=== PATIENT | female | born 1930 | race Caucasian/White ===

== ENCOUNTER 2019-03-09 01:51 | Inpatient (IN) | payer OTHER, MEDICAID ==
[~2019-03-09] VITALS: Ht 154.9 cm; Wt 72.1 kg
[~2019-03-09 01:51] MED LIST: ALLO-57; ASPI-859; COR25; FERR325T30; FURO-150; GLIP5TAB13; HUM10VIA3; LOSA100T23; SIMV10TA6 PO; VIT1TABL67
[2019-03-09 02:00] VITALS: BP_SYST 148
[2019-03-09] MEDS ORDERED: ACETAMINOPHEN 500 MG TABLET PO ONE (03:00)
[2019-03-09 03:18] LABS: BASOPHILS # (AUTO) 0.1 K/uL (0.0-0.2); BASOPHILS % (AUTO) 0.8 % (0.0-2.0); EOSINOPHILS # (AUTO) 0.1 K/uL (0.0-0.4); HEMATOCRIT 35.9 % (36-48); HEMOGLOBIN 11.7 g/dL (12.0-16.0); LYMPHOCYTES # (AUTO) 0.6 K/uL (1.0-5.5); MEAN CORPUSCULAR HEMOGLOBIN 30 pg (27-31); MEAN CORPUSCULAR HGB CONC 33 % (32-36); MEAN CORPUSCULAR VOLUME 91 fL (79.0-98.0); MONOCYTES # (AUTO) 0.8 K/uL (0.0-1.0); MONOCYTES % (AUTO) 8.6 % (1.7-9.3); NEUTROPHILS # (AUTO) 8.2 K/uL (1.8-7.7); NEUTROPHILS % (AUTO) 83.6 % (40.0-70.0); PLATELET COUNT (AUTO) 245 K/uL (130-430); RED BLOOD CELL COUNT(AUTO) 3.97 MIL/uL (4.2-6.2); RED CELL DISTRIBUTION WIDTH 15.8 % (9.0-15.0); WHITE BLOOD COUNT (AUTO) 9.8 K/uL (4.8-10.8)
[2019-03-09 03:33] LABS: ANION GAP 7 (5-15); CALCIUM 9.1 mg/dL (8.4-11.0); CHLORIDE 102 mmol/L (98-107); CREATININE 1.33 mg/dL (0.55-1.30); GLUCOSE 335 mg/dL (70-99); POTASSIUM 4.5 mmol/L (3.5-5.1); SODIUM SERUM 134 mmol/L (136-145); UREA NITROGEN, BLOOD 22 mg/dL (8-21)
[2019-03-09 03:36] LABS: INR 2.1 (0.8-1.2); PROTHROMBIN TIME 20.5 SECS (9.5-12.5)
[2019-03-09 03:38] LABS: ALANINE AMINOTRANSFERASE 6 U/L (12-78); ALBUMIN 2.8 g/dL (3.4-4.8); ASPARTATE AMINOTRANSFERASE 11 U/L (10-37); TOTAL BILIRUBIN 0.7 mg/dL (0.0-1.0)
[2019-03-09] MEDS ORDERED: DILTIAZEM HCL 25 MG/5 ML VIAL IVP ONE (04:00)
[2019-03-09] MEDS ORDERED: ALLO100T PO (04:43)
[2019-03-09] MEDS ORDERED: IRON1CAP17 PO (04:43)
[2019-03-09] MEDS ORDERED: WARF2TAB2 PO (04:43)
[2019-03-09] MEDS ORDERED: INSU100I12 SQ (04:43)
[2019-03-09] MEDS ORDERED: FURO-149 PO (04:43)
[2019-03-09] MEDS ORDERED: FAMO40TA7 PO (04:43)
[2019-03-09] MEDS ORDERED: LOSA25TA3 PO (04:43)
[2019-03-09] MEDS ORDERED: FLUT100D INH (04:43)
[2019-03-09] MEDS ORDERED: DILT120C89 PO (04:43)
[2019-03-09] MEDS ORDERED: GABA-531 PO (04:43)
[2019-03-09] MEDS ORDERED: DOCU250C14 PO (04:43)
[2019-03-09] MEDS ORDERED: TRAZ-218 PO (04:43)
[2019-03-09] MEDS ORDERED: LIP20 PO (04:43)
[2019-03-09] MEDS ORDERED: TOPXL100 PO (04:43)
[2019-03-09] MEDS ORDERED: ACET-2165 PO (04:43)
[2019-03-09] MEDS ORDERED: NPH,100I SQ ×2 (04:43)
[2019-03-09] MEDS ORDERED: cefTRIAXone 1 GM IVPB PREMIX 50 ML IV ONE (05:15)
[2019-03-09] MEDS ORDERED: AZITHROMYCIN 250 MG TABLET PO ONE (05:15)
[2019-03-09] MEDS ORDERED: DILTIAZEM HCL 60 MG TABLET ONE (06:50)
[2019-03-09 07:32] VITALS: BP_SYST 142
[2019-03-09 08:00] VITALS: BP_SYST 144
[2019-03-09 08:32] LABS: INR 2.1 (0.8-1.2); PROTHROMBIN TIME 20.7 SECS (9.5-12.5)
[2019-03-09] MEDS: DILTIAZEM HCL 60 MG TABLET PO SCH ×3 (12:00→18:00)
[2019-03-09] MEDS ORDERED: METOPROLOL TARTRATE 50 MG TABLET PO ONE (12:00)
[2019-03-09 12:49] VITALS: BP_SYST 146
[2019-03-09 16:48] VITALS: BP_SYST 141
[2019-03-09 20:00] VITALS: BP_SYST 93
[2019-03-09] MEDS: METOPROLOL TARTRATE 50 MG TABLET PO SCH (21:00)
[2019-03-09] MEDS ORDERED: DEXTROSE 50%-WATER 50 ML DISP.SYRIN IVP PRN (21:15)
[2019-03-09] MEDS ORDERED: D5W 1,000 ML IV PRN (21:15)
[2019-03-09] MEDS ORDERED: GLUCOSE 15 GM GEL (in 37.5 GM TUBE) PO PRN (21:15)
[2019-03-09] MEDS ORDERED: COMMUNICATION ORDER XX ONE (21:30)
[2019-03-09] MEDS: INSULIN LISPRO SLIDING SCALE 100 UNITS/ML VIAL (humaLOG) SUBCUT PRN (22:25)
[2019-03-10 00:04] VITALS: BP_SYST 135
[2019-03-10] MEDS: DILTIAZEM HCL 60 MG TABLET PO SCH ×4 (06:00→18:00)
[2019-03-10 06:45] LABS: BASOPHILS # (AUTO) 0.1 K/uL (0.0-0.2); EOSINOPHILS # (AUTO) 0.2 K/uL (0.0-0.4); EOSINOPHILS % (AUTO) 2.9 % (0.0-4.0); HEMATOCRIT 33.3 % (36-48); HEMOGLOBIN 11.1 g/dL (12.0-16.0); LYMPHOCYTES % (AUTO) 13.1 % (20.5-51.5); MEAN CORPUSCULAR HEMOGLOBIN 30 pg (27-31); MEAN CORPUSCULAR HGB CONC 33 % (32-36); MEAN CORPUSCULAR VOLUME 90 fL (79.0-98.0); MONOCYTES # (AUTO) 0.7 K/uL (0.0-1.0); MONOCYTES % (AUTO) 8.5 % (1.7-9.3); NEUTROPHILS # (AUTO) 5.9 K/uL (1.8-7.7); NEUTROPHILS % (AUTO) 74.5 % (40.0-70.0); PLATELET COUNT (AUTO) 249 K/uL (130-430); RED CELL DISTRIBUTION WIDTH 16.3 % (9.0-15.0); WHITE BLOOD COUNT (AUTO) 7.9 K/uL (4.8-10.8)
[2019-03-10 06:52] LABS: INR 2.7 (0.8-1.2); PROTHROMBIN TIME 26.7 SECS (9.5-12.5)
[2019-03-10 07:12] LABS: ALANINE AMINOTRANSFERASE 14 U/L (12-78); ALBUMIN 2.7 g/dL (3.4-4.8); ANION GAP 6 (5-15); ASPARTATE AMINOTRANSFERASE 19 U/L (10-37); CHLORIDE 107 mmol/L (98-107); CREATININE 1.27 mg/dL (0.55-1.30); GLUCOSE 123 mg/dL (70-99); POTASSIUM 5.1 mmol/L (3.5-5.1); SODIUM SERUM 140 mmol/L (136-145); THYROID STIMULATING HORMONE 2.43 uIu/mL (0.36-3.74); TOTAL BILIRUBIN 0.4 mg/dL (0.0-1.0); UREA NITROGEN, BLOOD 23 mg/dL (8-21)
[2019-03-10 08:15] VITALS: BP_SYST 147
[2019-03-10] MEDS: FUROSEMIDE 40 MG TABLET PO SCH (09:25)
[2019-03-10] MEDS: ALLOPURINOL 100 MG TABLET (ZYLOPRIM) PO SCH (09:26)
[2019-03-10] MEDS: ATORVASTATIN 20 MG TABLET PO SCH (09:26)
[2019-03-10] MEDS: METOPROLOL TARTRATE 50 MG TABLET PO SCH ×2 (09:27→20:30)
[2019-03-10 11:26] VITALS: BP_SYST 116
[2019-03-10] MEDS: INSULIN LISPRO SLIDING SCALE 100 UNITS/ML VIAL (humaLOG) SUBCUT PRN ×3 (12:19→20:36)
[2019-03-10 15:43] VITALS: BP_SYST 122
[2019-03-10 20:00] VITALS: BP_SYST 157
[2019-03-11] VITALS: BP_SYST 123
[2019-03-11] MEDS: DILTIAZEM HCL 60 MG TABLET PO SCH ×4 (06:00→17:10)
[2019-03-11] MEDS: INSULIN LISPRO SLIDING SCALE 100 UNITS/ML VIAL (humaLOG) SUBCUT PRN ×4 (06:04→21:01)
[2019-03-11 06:46] LABS: BASOPHILS # (AUTO) 0.1 K/uL (0.0-0.2); BASOPHILS % (AUTO) 0.8 % (0.0-2.0); EOSINOPHILS # (AUTO) 0.2 K/uL (0.0-0.4); EOSINOPHILS % (AUTO) 3.3 % (0.0-4.0); HEMATOCRIT 34.7 % (36-48); HEMOGLOBIN 11.5 g/dL (12.0-16.0); LYMPHOCYTES # (AUTO) 1.1 K/uL (1.0-5.5); LYMPHOCYTES % (AUTO) 16.3 % (20.5-51.5); MEAN CORPUSCULAR HEMOGLOBIN 30 pg (27-31); MEAN CORPUSCULAR HGB CONC 33 % (32-36); MEAN CORPUSCULAR VOLUME 90 fL (79.0-98.0); MONOCYTES # (AUTO) 0.6 K/uL (0.0-1.0); MONOCYTES % (AUTO) 9.5 % (1.7-9.3); NEUTROPHILS # (AUTO) 4.7 K/uL (1.8-7.7); NEUTROPHILS % (AUTO) 70.1 % (40.0-70.0); PLATELET COUNT (AUTO) 242 K/uL (130-430); RED BLOOD CELL COUNT(AUTO) 3.88 MIL/uL (4.2-6.2); RED CELL DISTRIBUTION WIDTH 15.9 % (9.0-15.0); WHITE BLOOD COUNT (AUTO) 6.7 K/uL (4.8-10.8)
[2019-03-11 06:55] LABS: PROTHROMBIN TIME 19.9 SECS (9.5-12.5)
[2019-03-11 07:02] LABS: ANION GAP 8 (5-15); CALCIUM 8.9 mg/dL (8.4-11.0); CHLORIDE 106 mmol/L (98-107); CREATININE 1.34 mg/dL (0.55-1.30); GLUCOSE 169 mg/dL (70-99); POTASSIUM 4.5 mmol/L (3.5-5.1); SODIUM SERUM 141 mmol/L (136-145); UREA NITROGEN, BLOOD 26 mg/dL (8-21)
[2019-03-11] MEDS: ATORVASTATIN 20 MG TABLET PO SCH (08:38)
[2019-03-11] MEDS: FUROSEMIDE 40 MG TABLET PO SCH (08:38)
[2019-03-11] MEDS: ALLOPURINOL 100 MG TABLET (ZYLOPRIM) PO SCH (08:38)
[2019-03-11] MEDS: METOPROLOL TARTRATE 50 MG TABLET PO SCH ×2 (08:39→20:59)
[2019-03-11 09:12] VITALS: BP_SYST 130
[2019-03-11 09:36] LABS: INR 1.9 (0.8-1.2); PROTHROMBIN TIME 18.9 SECS (9.5-12.5)
[2019-03-11 12:00] VITALS: BP_SYST 140
[2019-03-11 17:48] VITALS: BP_SYST 136
[2019-03-11 20:00] VITALS: BP_SYST 143
[2019-03-12] VITALS: BP_SYST 146
[2019-03-12] MEDS: DILTIAZEM HCL 60 MG TABLET PO SCH ×4 (06:16→17:16)
[2019-03-12] MEDS: INSULIN LISPRO SLIDING SCALE 100 UNITS/ML VIAL (humaLOG) SUBCUT PRN ×3 (06:18→17:20)
[2019-03-12 07:37] LABS: BASOPHILS # (AUTO) 0.1 K/uL (0.0-0.2); BASOPHILS % (AUTO) 0.9 % (0.0-2.0); EOSINOPHILS # (AUTO) 0.2 K/uL (0.0-0.4); EOSINOPHILS % (AUTO) 2.2 % (0.0-4.0); HEMATOCRIT 36.7 % (36-48); LYMPHOCYTES # (AUTO) 1.2 K/uL (1.0-5.5); LYMPHOCYTES % (AUTO) 16.4 % (20.5-51.5); MEAN CORPUSCULAR HEMOGLOBIN 30 pg (27-31); MEAN CORPUSCULAR HGB CONC 33 % (32-36); MEAN CORPUSCULAR VOLUME 91 fL (79.0-98.0); MONOCYTES # (AUTO) 0.8 K/uL (0.0-1.0); MONOCYTES % (AUTO) 10.5 % (1.7-9.3); NEUTROPHILS # (AUTO) 5.3 K/uL (1.8-7.7); PLATELET COUNT (AUTO) 246 K/uL (130-430); RED BLOOD CELL COUNT(AUTO) 4.05 MIL/uL (4.2-6.2); RED CELL DISTRIBUTION WIDTH 15.4 % (9.0-15.0); WHITE BLOOD COUNT (AUTO) 7.6 K/uL (4.8-10.8)
[2019-03-12 07:56] LABS: ANION GAP 11 (5-15); CALCIUM 8.9 mg/dL (8.4-11.0); CHLORIDE 105 mmol/L (98-107); GLUCOSE 191 mg/dL (70-99); POTASSIUM 4.6 mmol/L (3.5-5.1); SODIUM SERUM 143 mmol/L (136-145); UREA NITROGEN, BLOOD 30 mg/dL (8-21)
[2019-03-12 08:00] VITALS: BP_SYST 141
[2019-03-12 08:00] LABS: INR 1.4 (0.8-1.2); PROTHROMBIN TIME 14.3 SECS (9.5-12.5)
[2019-03-12] MEDS: FUROSEMIDE 40 MG TABLET PO SCH (09:28)
[2019-03-12] MEDS: ATORVASTATIN 20 MG TABLET PO SCH (09:28)
[2019-03-12] MEDS: ALLOPURINOL 100 MG TABLET (ZYLOPRIM) PO SCH (09:29)
[2019-03-12] MEDS: METOPROLOL TARTRATE 50 MG TABLET PO SCH (09:29)
[2019-03-12 12:19] VITALS: BP_SYST 135
[2019-03-12 15:54] VITALS: BP_SYST 121
[2019-03-12 16:19] VITALS: BP_SYST 135
[2019-03-12] MEDS ORDERED: WARF2TAB2 PO (16:33)
[2019-03-12] MEDS ORDERED: WARF1TAB2 PO (16:34)
[2019-03-12] MEDS ORDERED: METO-442 PO (16:48)
[2019-03-12] MEDS ORDERED: DILT60TA3 PO (16:49)
[2019-03-12] MEDS ORDERED: SSNOVOLOG SUBCUT (16:50)
[2019-03-12] MEDS ORDERED: INSU100V SQ (16:54)
[2019-03-12 19:34] LABS: SOURCE/TYPE ,BODY FLUID THORACENTESIS
[2019-03-12 19:35] LABS: BF APPEARANCE UNSPUN CLOUDY (CLEAR); BODY FLUID COLOR YELLOW (LT YELLOW); BODY FLUID SOURCE/ TYPE PLEURAL; BODY FLUID TOTAL VOLUME 300 mL; EOSINOPHIL, BODY FLUID 0 %; LYMPHOCYTES, BODY FLUID 92 %; MONOCYTES,BODY FLUID 2 %; NEUTROPHIL, BODY FLUID 6 %; RBC, BODY FLUID 8256 /uL; WBC, BODY FLUID 102 /uL
[2019-03-12 20:35] LABS: BODY FLUID GLUCOSE 164 mg/dL
== END 2019-03-12 19:10 | DRG 308 ==
LOC: SED 01:51 → STU 05:57
PROVIDERS: ADMIT Internal Medicine; ATTEND Internal Medicine
PROC: 0W993ZZ Drainage of Right Pleural Cavity, Percutaneous Approach (ICD-10-PCS; principal; 2019-03-12)
DX: I48.2 Chronic atrial fibrillation (principal); I50.41 Acute combined systolic (congestive) and diastolic (congestive) heart failure; D68.59 Other primary thrombophilia; J91.8 Pleural effusion in other conditions classified elsewhere; E44.0 Moderate protein-calorie malnutrition; I11.0 Hypertensive heart disease with heart failure; E78.5 Hyperlipidemia, unspecified; F32.9 Major depressive disorder, single episode, unspecified; G31.84 Mild cognitive impairment of uncertain or unknown etiology; E11.42 Type 2 diabetes mellitus with diabetic polyneuropathy; Z60.2 Problems related to living alone; I25.10 Atherosclerotic heart disease of native coronary artery without angina pectoris; E66.9 Obesity, unspecified; S43.401A Unspecified sprain of right shoulder joint, initial encounter; W01.0XXA Fall on same level from slipping, tripping and stumbling without subsequent striking against object, initial encounter; Y93.89 Activity, other specified; Z79.01 Long term (current) use of anticoagulants; Y99.8 Other external cause status; Z90.49 Acquired absence of other specified parts of digestive tract; Z85.038 Personal history of other malignant neoplasm of large intestine; Z74.01 Bed confinement status; Z79.4 Long term (current) use of insulin; Z87.891 Personal history of nicotine dependence; Z88.0 Allergy status to penicillin; Z88.8 Allergy status to other drugs, medicaments and biological substances; Y92.098 Other place in other non-institutional residence as the place of occurrence of the external cause; Z79.899 Other long term (current) drug therapy; Z68.30 Body mass index [BMI] 30.0-30.9, adult
CPT/HCPCS: 32555; 36415; 70450-TC; 71045; 71250-TC; 73030; 73060-TC; 80048; 80053; 82947-TC; 82962; 83036; 83605; 83735-TC; 83880; 84157-TC; 84443-TC; 84484; 85025; 85610-TC; 85730-TC; 87040-TC; 87070-TC; 87081; 88108; 88305; 89051-TC; 89060-TC; 93005; 93306; 97110-GP; 97116-GP; 97530-GP; C1729; G0378; J0696; Q0144

== ENCOUNTER 2019-03-15 22:01 | Inpatient (IN) | payer OTHER, MEDICAID ==
[~2019-03-15] VITALS: Ht 154.9 cm; Wt 73.2 kg
[~2019-03-15 22:01] MED LIST changes: +ACET-2165 PO; -ALLO-57; +ALLO100T PO; -ASPI-859; -COR25; +DILT60TA3 PO; -FERR325T30; +FURO-149 PO; -FURO-150; -GLIP5TAB13; -HUM10VIA3; +LIP20 PO; -LOSA100T23; +METO-442 PO; -SIMV10TA6 PO; +SSNOVOLOG SUBCUT; -VIT1TABL67; +WARF1TAB2 PO
[2019-03-15 22:05] VITALS: BP_SYST 129
[2019-03-15 22:35] LABS: BASOPHILS # (AUTO) 0.1 K/uL (0.0-0.2); BASOPHILS % (AUTO) 0.8 % (0.0-2.0); EOSINOPHILS # (AUTO) 0.3 K/uL (0.0-0.4); EOSINOPHILS % (AUTO) 3.1 % (0.0-4.0); HEMOGLOBIN 11.6 g/dL (12.0-16.0); LYMPHOCYTES # (AUTO) 1.2 K/uL (1.0-5.5); LYMPHOCYTES % (AUTO) 12.8 % (20.5-51.5); MEAN CORPUSCULAR HEMOGLOBIN 30 pg (27-31); MEAN CORPUSCULAR HGB CONC 33 % (32-36); MEAN CORPUSCULAR VOLUME 89 fL (79.0-98.0); MONOCYTES # (AUTO) 0.8 K/uL (0.0-1.0); MONOCYTES % (AUTO) 8.6 % (1.7-9.3); NEUTROPHILS # (AUTO) 7.2 K/uL (1.8-7.7); NEUTROPHILS % (AUTO) 74.7 % (40.0-70.0); PLATELET COUNT (AUTO) 303 K/uL (130-430); RED BLOOD CELL COUNT(AUTO) 3.92 MIL/uL (4.2-6.2); RED CELL DISTRIBUTION WIDTH 15.7 % (9.0-15.0); WHITE BLOOD COUNT (AUTO) 9.6 K/uL (4.8-10.8)
[2019-03-15 22:48] LABS: ANION GAP 11 (5-15); CALCIUM 8.8 mg/dL (8.4-11.0); CHLORIDE 101 mmol/L (98-107); CREATININE 1.72 mg/dL (0.55-1.30); GLUCOSE 182 mg/dL (70-99); POTASSIUM 4.6 mmol/L (3.5-5.1); SODIUM SERUM 139 mmol/L (136-145); UREA NITROGEN, BLOOD 50 mg/dL (8-21)
[2019-03-15 22:52] LABS: INR 1.1 (0.8-1.2); PROTHROMBIN TIME 11.6 SECS (9.5-12.5)
[2019-03-15 22:54] LABS: ALANINE AMINOTRANSFERASE 15 U/L (12-78); ALBUMIN 2.7 g/dL (3.4-4.8); ASPARTATE AMINOTRANSFERASE 16 U/L (10-37); TOTAL BILIRUBIN 0.4 mg/dL (0.0-1.0)
[2019-03-15] MEDS ORDERED: MULT-1117 PO (23:03)
[2019-03-15] MEDS ORDERED: NYSTATIN POWDER TP (23:03)
[2019-03-15] MEDS ORDERED: MOM PO (23:03)
[2019-03-15] MEDS ORDERED: INSULIN LISPRO SQ (23:03)
[2019-03-15] MEDS ORDERED: ZINC50TA69 PO (23:03)
[2019-03-15] MEDS ORDERED: ASCO500T20 PO (23:03)
[2019-03-15] MEDS ORDERED: ASCO500C18 PO (23:03)
[2019-03-15] MEDS ORDERED: NACL 0.9% 500 ML IV ONE (23:30)
[2019-03-15] MEDS ORDERED: LEVOFLOXACIN 500 MG/D5W 100 ML IV ONE (23:45)
[2019-03-15] MEDS ORDERED: CLINDAMYCIN 900 mg/50mL D5W 50 ML IV ONE (23:45)
[2019-03-16 02:26] VITALS: BP_SYST 137
[2019-03-16] MEDS: INSULIN REGULAR, HUMAN 100 UNITS/ML, 10 ML VIAL (humuLIN R) SUBCUT PRN ×4 (05:56→21:05)
[2019-03-16 08:06] VITALS: BP_SYST 138
[2019-03-16] MEDS ORDERED: ACETAMINOPHEN 325 MG TABLET PO PRN (11:15)
[2019-03-16] MEDS: NACL 0.9% 1,000 ML IV SCH (11:59)
[2019-03-16 12:30] VITALS: BP_SYST 130
[2019-03-16] MEDS ORDERED: MILK OF MAGNESIA 30 ML UDC PO PRN (13:45)
[2019-03-16 14:42] LABS: INR 1.3 (0.8-1.2); PROTHROMBIN TIME 12.9 SECS (9.5-12.5)
[2019-03-16 16:15] VITALS: BP_SYST 129
[2019-03-16] MEDS: DILTIAZEM HCL 60 MG TABLET PO SCH ×2 (17:22→23:17)
[2019-03-16] MEDS ORDERED: WARFARIN SODIUM 1 MG TABLET PO SCH (18:00)
[2019-03-16] MEDS ORDERED: WARFARIN SODIUM 5 MG TABLET PO ONE (18:00)
[2019-03-16] MEDS: ATORVASTATIN 20 MG TABLET PO SCH (21:03)
[2019-03-16] MEDS: METOPROLOL TARTRATE 50 MG TABLET PO SCH (21:04)
[2019-03-17 00:47] VITALS: BP_SYST 141
[2019-03-17] MEDS: NACL 0.9% 1,000 ML IV SCH (02:33)
[2019-03-17] MEDS: DILTIAZEM HCL 60 MG TABLET PO SCH ×3 (05:34→18:00)
[2019-03-17 06:35] LABS: INR 1.4 (0.8-1.2); PROTHROMBIN TIME 14.5 SECS (9.5-12.5)
[2019-03-17 06:40] LABS: BASOPHILS # (AUTO) 0.1 K/uL (0.0-0.2); BASOPHILS % (AUTO) 0.9 % (0.0-2.0); EOSINOPHILS # (AUTO) 0.2 K/uL (0.0-0.4); EOSINOPHILS % (AUTO) 3.1 % (0.0-4.0); HEMATOCRIT 30.7 % (36-48); HEMOGLOBIN 10.4 g/dL (12.0-16.0); LYMPHOCYTES % (AUTO) 15.2 % (20.5-51.5); MEAN CORPUSCULAR HEMOGLOBIN 30 pg (27-31); MEAN CORPUSCULAR HGB CONC 34 % (32-36); MEAN CORPUSCULAR VOLUME 89 fL (79.0-98.0); MONOCYTES # (AUTO) 0.6 K/uL (0.0-1.0); MONOCYTES % (AUTO) 8.9 % (1.7-9.3); NEUTROPHILS # (AUTO) 4.9 K/uL (1.8-7.7); NEUTROPHILS % (AUTO) 71.9 % (40.0-70.0); PLATELET COUNT (AUTO) 258 K/uL (130-430); RED BLOOD CELL COUNT(AUTO) 3.45 MIL/uL (4.2-6.2); RED CELL DISTRIBUTION WIDTH 15.8 % (9.0-15.0)
[2019-03-17 06:53] LABS: ALANINE AMINOTRANSFERASE 14 U/L (12-78); ALBUMIN 2.3 g/dL (3.4-4.8); ANION GAP 9 (5-15); ASPARTATE AMINOTRANSFERASE 14 U/L (10-37); CALCIUM 8.1 mg/dL (8.4-11.0); CHLORIDE 109 mmol/L (98-107); CREATININE 1.47 mg/dL (0.55-1.30); GLUCOSE 140 mg/dL (70-99); POTASSIUM 4.1 mmol/L (3.5-5.1); SODIUM SERUM 143 mmol/L (136-145); TOTAL BILIRUBIN 0.3 mg/dL (0.0-1.0); UREA NITROGEN, BLOOD 38 mg/dL (8-21)
[2019-03-17 07:58] LABS: WHITE BLOOD COUNT (AUTO) 6.8 K/uL (4.8-10.8)
[2019-03-17 08:00] VITALS: BP_SYST 156
[2019-03-17] MEDS: ALLOPURINOL 100 MG TABLET (ZYLOPRIM) PO SCH (08:20)
[2019-03-17] MEDS: MULTIVITAMINS TAB 1 TABLET PO SCH (08:20)
[2019-03-17] MEDS: ASCORBIC ACID 500 MG TABLET PO SCH (08:20)
[2019-03-17] MEDS: METOPROLOL TARTRATE 50 MG TABLET PO SCH ×2 (08:20→21:57)
[2019-03-17] MEDS: FUROSEMIDE 40 MG TABLET PO SCH (08:20)
[2019-03-17] MEDS ORDERED: NYSTATIN 15 GM TOPICAL POWDER TP SCH (09:00)
[2019-03-17] MEDS: INSULIN REGULAR, HUMAN 100 UNITS/ML, 10 ML VIAL (humuLIN R) SUBCUT PRN ×2 (11:58→21:59)
[2019-03-17 12:40] VITALS: BP_SYST 133
[2019-03-17] MEDS ORDERED: VANCOMYCIN HCL 1,500 MG in NS 250 ML IV ONE (14:00)
[2019-03-17 16:35] VITALS: BP_SYST 137
[2019-03-17] MEDS ORDERED: WARFARIN SODIUM 5 MG TABLET PO ONE (18:00)
[2019-03-17 20:00] VITALS: BP_SYST 164
[2019-03-17] MEDS: ATORVASTATIN 20 MG TABLET PO SCH (21:57)
[2019-03-18] VITALS: BP_SYST 134
[2019-03-18] MEDS: DILTIAZEM HCL 60 MG TABLET PO SCH ×4 (06:00→17:00)
[2019-03-18 07:00] LABS: ANION GAP 6 (5-15); CALCIUM 8.8 mg/dL (8.4-11.0); CHLORIDE 109 mmol/L (98-107); CREATININE 1.35 mg/dL (0.55-1.30); GLUCOSE 142 mg/dL (70-99); POTASSIUM 3.9 mmol/L (3.5-5.1); SODIUM SERUM 144 mmol/L (136-145); UREA NITROGEN, BLOOD 32 mg/dL (8-21)
[2019-03-18] MEDS: MULTIVITAMINS TAB 1 TABLET PO SCH (07:51)
[2019-03-18] MEDS: ALLOPURINOL 100 MG TABLET (ZYLOPRIM) PO SCH (07:51)
[2019-03-18] MEDS: METOPROLOL TARTRATE 50 MG TABLET PO SCH ×2 (07:51→21:00)
[2019-03-18] MEDS: ASCORBIC ACID 500 MG TABLET PO SCH (07:51)
[2019-03-18] MEDS: FUROSEMIDE 40 MG TABLET PO SCH (07:52)
[2019-03-18] MEDS: NYSTATIN 15 GM TOPICAL POWDER TP SCH (07:53)
[2019-03-18 08:00] VITALS: BP_SYST 153
[2019-03-18 09:52] LABS: INR 1.8 (0.8-1.2); PROTHROMBIN TIME 18.3 SECS (9.5-12.5)
[2019-03-18] MEDS: INSULIN REGULAR, HUMAN 100 UNITS/ML, 10 ML VIAL (humuLIN R) SUBCUT PRN ×3 (11:53→21:58)
[2019-03-18 12:47] VITALS: BP_SYST 134
[2019-03-18] MEDS: VANCOMYCIN HCL 750 MG/NS 250 ML IV SCH (14:58)
[2019-03-18 16:15] VITALS: BP_SYST 133
[2019-03-18] MEDS ORDERED: WARFARIN SODIUM 4 MG TABLET PO ONE (18:00)
[2019-03-18 20:00] VITALS: BP_SYST 138
[2019-03-18] MEDS: ATORVASTATIN 20 MG TABLET PO SCH (21:54)
[2019-03-19] VITALS: BP_SYST 139
[2019-03-19] MEDS: DILTIAZEM HCL 60 MG TABLET PO SCH ×4 (06:31→17:45)
[2019-03-19 08:00] VITALS: BP_SYST 159
[2019-03-19] MEDS: ALLOPURINOL 100 MG TABLET (ZYLOPRIM) PO SCH (09:23)
[2019-03-19] MEDS: ASCORBIC ACID 500 MG TABLET PO SCH (09:23)
[2019-03-19] MEDS: FUROSEMIDE 40 MG TABLET PO SCH (09:23)
[2019-03-19] MEDS: MULTIVITAMINS TAB 1 TABLET PO SCH (09:23)
[2019-03-19] MEDS: METOPROLOL TARTRATE 50 MG TABLET PO SCH ×2 (09:24→21:00)
[2019-03-19] MEDS: NYSTATIN 15 GM TOPICAL POWDER TP SCH (09:40)
[2019-03-19 10:32] LABS: INR 2.3 (0.8-1.2)
[2019-03-19 12:00] VITALS: BP_SYST 158
[2019-03-19] MEDS: INSULIN REGULAR, HUMAN 100 UNITS/ML, 10 ML VIAL (humuLIN R) SUBCUT PRN ×3 (12:03→21:58)
[2019-03-19] MEDS: VANCOMYCIN HCL 750 MG/NS 250 ML IV SCH (13:41)
[2019-03-19 17:04] VITALS: BP_SYST 129
[2019-03-19] MEDS ORDERED: WARFARIN SODIUM 3 MG TABLET PO SCH (18:00)
[2019-03-19 20:00] VITALS: BP_SYST 138
[2019-03-19] MEDS: ATORVASTATIN 20 MG TABLET PO SCH (21:56)
[2019-03-20 02:09] VITALS: BP_SYST 133
[2019-03-20] MEDS: DILTIAZEM HCL 60 MG TABLET PO SCH ×3 (06:29→11:44)
[2019-03-20 08:08] LABS: BASOPHILS # (AUTO) 0.1 K/uL (0.0-0.2); BASOPHILS % (AUTO) 0.7 % (0.0-2.0); EOSINOPHILS # (AUTO) 0.2 K/uL (0.0-0.4); EOSINOPHILS % (AUTO) 2.8 % (0.0-4.0); HEMATOCRIT 33.1 % (36-48); HEMOGLOBIN 11.1 g/dL (12.0-16.0); LYMPHOCYTES % (AUTO) 12.9 % (20.5-51.5); MEAN CORPUSCULAR HEMOGLOBIN 30 pg (27-31); MEAN CORPUSCULAR HGB CONC 34 % (32-36); MEAN CORPUSCULAR VOLUME 90 fL (79.0-98.0); MONOCYTES # (AUTO) 0.6 K/uL (0.0-1.0); NEUTROPHILS # (AUTO) 5.8 K/uL (1.8-7.7); NEUTROPHILS % (AUTO) 75.6 % (40.0-70.0); PLATELET COUNT (AUTO) 240 K/uL (130-430); RED BLOOD CELL COUNT(AUTO) 3.69 MIL/uL (4.2-6.2); RED CELL DISTRIBUTION WIDTH 15.6 % (9.0-15.0); WHITE BLOOD COUNT (AUTO) 7.7 K/uL (4.8-10.8)
[2019-03-20 08:10] VITALS: BP_SYST 136
[2019-03-20 08:26] LABS: INR 2.6 (0.8-1.2); PROTHROMBIN TIME 25.8 SECS (9.5-12.5)
[2019-03-20 08:28] LABS: ALANINE AMINOTRANSFERASE 15 U/L (12-78); ALBUMIN 2.5 g/dL (3.4-4.8); ANION GAP 3 (5-15); ASPARTATE AMINOTRANSFERASE 18 U/L (10-37); CALCIUM 9.3 mg/dL (8.4-11.0); CHLORIDE 106 mmol/L (98-107); CREATININE 1.36 mg/dL (0.55-1.30); GLUCOSE 124 mg/dL (70-99); POTASSIUM 3.8 mmol/L (3.5-5.1); SODIUM SERUM 140 mmol/L (136-145); TOTAL BILIRUBIN 0.5 mg/dL (0.0-1.0); UREA NITROGEN, BLOOD 30 mg/dL (8-21)
[2019-03-20] MEDS: ASCORBIC ACID 500 MG TABLET PO SCH (09:01)
[2019-03-20] MEDS: MULTIVITAMINS TAB 1 TABLET PO SCH (09:01)
[2019-03-20] MEDS: ALLOPURINOL 100 MG TABLET (ZYLOPRIM) PO SCH (09:02)
[2019-03-20] MEDS: FUROSEMIDE 40 MG TABLET PO SCH (09:02)
[2019-03-20] MEDS: METOPROLOL TARTRATE 50 MG TABLET PO SCH (09:02)
[2019-03-20] MEDS: NYSTATIN 15 GM TOPICAL POWDER TP SCH (09:05)
[2019-03-20] MEDS: INSULIN REGULAR, HUMAN 100 UNITS/ML, 10 ML VIAL (humuLIN R) SUBCUT PRN (11:40)
[2019-03-20 12:00] VITALS: BP_SYST 136
[2019-03-20] MEDS: VANCOMYCIN HCL 750 MG/NS 250 ML IV SCH (14:03)
[2019-03-20 15:25] VITALS: BP_SYST 136
[2019-03-20 16:12] VITALS: BP_SYST 153
== END 2019-03-20 16:15 | DRG 871 ==
LOC: SED 22:01 → STU 03-16 00:50 → SMU 03-20 11:31
PROVIDERS: ADMIT Internal Medicine Hospice and Palliative Medicine; ATTEND Internal Medicine Hospice and Palliative Medicine
DX: A41.9 Sepsis, unspecified organism (principal); N17.0 Acute kidney failure with tubular necrosis; J18.9 Pneumonia, unspecified organism; I50.32 Chronic diastolic (congestive) heart failure; E86.0 Dehydration; E11.9 Type 2 diabetes mellitus without complications; D64.9 Anemia, unspecified; M19.90 Unspecified osteoarthritis, unspecified site; I48.2 Chronic atrial fibrillation; R00.1 Bradycardia, unspecified; R29.6 Repeated falls; I11.0 Hypertensive heart disease with heart failure; E11.42 Type 2 diabetes mellitus with diabetic polyneuropathy; Z88.0 Allergy status to penicillin; Z79.4 Long term (current) use of insulin; Z79.899 Other long term (current) drug therapy; Z90.49 Acquired absence of other specified parts of digestive tract; Z85.09 Personal history of malignant neoplasm of other digestive organs; Z85.038 Personal history of other malignant neoplasm of large intestine; Z79.01 Long term (current) use of anticoagulants
CPT/HCPCS: 36415; 71045; 80048; 80053; 80202-TC; 82962; 83605; 83880; 84484; 85025; 85610-TC; 85730-TC; 87040-TC; 87081; 87186-TC; 93005; 96365; 96367; 97116-GP; 97530-GP; 99285; G0378; J1815; J1956; J3370; J3490; J7030; J7050

== ENCOUNTER 2019-08-19 12:21 | Inpatient (IN) | payer OTHER ==
[~2019-08-19] VITALS: Ht 154.9 cm; Wt 61.7 kg
[~2019-08-19 12:21] MED LIST changes: +ASCO500C18 PO; +ASCO500T20 PO; +INSULIN LISPRO SQ; +MOM PO; +MULT-1117 PO; +NYSTATIN POWDER TP; -SSNOVOLOG SUBCUT; +ZINC50TA69 PO
[2019-08-19 12:30] VITALS: BP_SYST 152
[2019-08-19 13:12] LABS: BASOPHILS % (AUTO) 0.3 % (0.0-2.0); EOSINOPHILS % (AUTO) 0.1 % (0.0-4.0); HEMATOCRIT 38.2 % (36-48); HEMOGLOBIN 12.2 g/dL (12.0-16.0); LYMPHOCYTES # (AUTO) 0.7 K/uL (1.0-5.5); LYMPHOCYTES % (AUTO) 8.2 % (20.5-51.5); MEAN CORPUSCULAR HEMOGLOBIN 28 pg (27-31); MEAN CORPUSCULAR HGB CONC 32 % (32-36); MEAN CORPUSCULAR VOLUME 89 fL (79.0-98.0); MONOCYTES # (AUTO) 0.5 K/uL (0.0-1.0); MONOCYTES % (AUTO) 6.3 % (1.7-9.3); NEUTROPHILS # (AUTO) 7.3 K/uL (1.8-7.7); NEUTROPHILS % (AUTO) 85.1 % (40.0-70.0); PLATELET COUNT (AUTO) 231 K/uL (130-430); RED BLOOD CELL COUNT(AUTO) 4.32 MIL/uL (4.2-6.2); RED CELL DISTRIBUTION WIDTH 18.3 % (9.0-15.0); WHITE BLOOD COUNT (AUTO) 8.6 K/uL (4.8-10.8)
[2019-08-19 13:23] LABS: INR 1.2 (0.8-1.2); PROTHROMBIN TIME 11.7 SECS (9.5-12.5)
--- NOTE | 2019-08-19 13:27 | NUR ---
Placed in room 05 . Placed on service secretary, blood pressure machine and pulse oximeter. To gown for exam. Side rails up.
[2019-08-19 13:38] LABS: ANION GAP 6 (5-15); CHLORIDE 102 mmol/L (98-107); CREATININE 1.45 mg/dL (0.55-1.30); GLUCOSE 311 mg/dL (70-99); POTASSIUM 3.6 mmol/L (3.5-5.1); SODIUM SERUM 140 mmol/L (136-145); UREA NITROGEN, BLOOD 61 mg/dL (8-21)
--- NOTE | 2019-08-19 13:40 | NUR ---
#18 gauge angiocatheter placed to R antecubital. Use of asceptic technique. Opsite placed over site. Blood return noted. Flushed with 10 mL of normal saline. No evidence of infiltration noted. Patient tolerated well.
[2019-08-19 13:43] LABS: ALANINE AMINOTRANSFERASE 16 U/L (12-78); ALBUMIN 2.5 g/dL (3.4-4.8); ASPARTATE AMINOTRANSFERASE 20 U/L (10-37); TOTAL BILIRUBIN 0.6 mg/dL (0.0-1.0)
--- NOTE | 2019-08-19 13:44 | NUR ---
#14 FR straight catheter with use of sterile technique. Immediate return of 200 mL cloudy yellow urine noted. Bedside drainage bag placed below level of bladder. Urine sample collected and sent to lab. Pt tolerated procedure well.
--- NOTE | 2019-08-19 13:56 | NUR ---
electroneurodiagnostic technologist at bedside for chest xray.
--- NOTE | 2019-08-19 14:08 | NUR ---
Patient AAO x 4 mostly Croatian-speaking BIB BLS from [facility] by Dr. Forte for evaluation for abnormal CXR and fever. Current temperature is 98.7. Patient has history of DM2, HTN, asthma, cancer, cardiac d/o, CVA, dementia, GERD, pacemaker, renal disease, sz, thyroid disease. Bilateral ronchi can be heard on auscultation. Patient placed on 2L O2 via NC d/t 90% RA per pulse oximeter reading. Even chest rise and fall with respirations with mild distress. Will continue to monitor.
[2019-08-19 14:38] LABS: BILIRUBIN,URINE NEGATIVE (NEGATIVE); CLARITY/URINE SL CLOUDY (CLEAR); COLOR,URINE YELLOW (YELLOW); GLUCOSE,URINE NEGATIVE (NEGATIVE); KETONES,URINE NEGATIVE (NEGATIVE); LEUKOCYTE ESTERASE ,URINE 3+ (NEGATIVE); NITRITE, URINE NEGATIVE (NEGATIVE); PH,URINE 7.5 (5.0-8.0); PROTEIN URINE 1+ (NEGATIVE); UROBILINOGEN,URINE 0.2 (0.2-1.0)
[2019-08-19] MEDS ORDERED: ACET325T53 PO (15:01)
[2019-08-19] MEDS ORDERED: FLEETMO RC (15:01)
[2019-08-19] MEDS ORDERED: BISA10SU61 RC (15:01)
[2019-08-19] MEDS ORDERED: WARF3TAB PO (15:01)
[2019-08-19] MEDS ORDERED: ESCI10TA PO (15:01)
[2019-08-19 15:02] LABS: BLOOD, URINE TRACE (NEGATIVE)
--- NOTE | 2019-08-19 15:04 | NUR ---
Medication reconciliation completed with information provided by medication list from facility. Any prior medication reconciliation on file was reviewed and corrected.
[2019-08-19] MEDS ORDERED: WARF2TAB2 PO (15:12)
--- NOTE | 2019-08-19 15:15 | NUR ---
Dr. Forte at bedside examining patient.
[2019-08-19 15:22] LABS: BACTERIA,URINE MANY /HPF (None Seen); RBC,URINE 0-3 /HPF (0-3); WBC,URINE 50-80 /HPF (0-3)
[2019-08-19] MEDS ORDERED: ALBUTEROL SULFATE 0.083% 2.5 MG/3 ML VIAL.NEB INH PRN (15:30)
[2019-08-19] MEDS ORDERED: DEXTROSE 50% JECT 50 ML DISP.SYRIN IVP PRN (15:30)
[2019-08-19] MEDS ORDERED: IPRATROPIUM BROM 0.5 MG/2.5 ML VIAL.NEB (ATROVENT) INH PRN (15:30)
--- NOTE | 2019-08-19 15:30 | NUR ---
Called [facility], charge account clerk unavailable.
--- NOTE | 2019-08-19 15:46 | NUR ---
Called [facility] for bed. Per [facility], biofuels product manager will call back when available.
[2019-08-19] MEDS: AZITHROMYCIN 500 MG in NS 250 ML IV SCH (15:58)
[2019-08-19] MEDS ORDERED: AZITHROMYCIN 500 MG/VIAL (ZITHROMAX) IV ONE (16:03)
--- NOTE | 2019-08-19 16:08 | NUR ---
[facility] called at [phone]. Spoke with LAI Perdue (nursing poultry hatchery supervisor) to update staff on plan for admission under Dr. Forte for diagnosis of pleural effusion.
--- NOTE | 2019-08-19 16:43 | NUR ---
Patient will be admitted to care of Dr. Forte. Admitted to Telemetry unit. Will go to room 103B. Complete and up to date summary report printed. SBAR report to be given at bedside with opportunity for questions.
[2019-08-19 17:12] VITALS: BP_SYST 140
[2019-08-19 17:29] VITALS: BP_SYST 140
--- NOTE | 2019-08-19 17:30 | NUR ---
RN INITIAL ADMISSION NOTES PATIENT RECEIVED PATIENT FROM ER NURSES NO FACIAL GRIMACE NOT IN ANY DISTRESS SATING 97% WITH O2 AT 2 L/MIN , PATIENT HOB ELEVATED, TO PAGE DR MICHEL; PATIENT HAS NO DIET TO START MEDS
[2019-08-19 18:00] VITALS: BP_SYST 124
[2019-08-19 18:08] VITALS: BP_SYST 124
[2019-08-19] MEDS: DILTIAZEM HCL 60 MG TABLET PO SCH (18:28)
--- NOTE | 2019-08-19 18:30 | NUR ---
CASS ODELL MD AGAIN PATIENT HAS NO DIET ALL N O IVF ALSO , NO INSULIN GIVEN , WILL FOLLOW UP CALL AGAIN, AND TO VERIFY PT. DIET AND TO INFORM INSULIN NOT GIVEN
[2019-08-19] MEDS: ALBUTEROL SULFATE 0.083% 2.5 MG/3 ML VIAL.NEB INH SCH (19:44)
[2019-08-19] MEDS: IPRATROPIUM BROM 0.5 MG/2.5 ML VIAL.NEB (ATROVENT) INH SCH (19:44)
[2019-08-19 20:00] VITALS: BP_SYST 124
[2019-08-19] MEDS ORDERED: FLU VACC TS2019(65UP)/MF59C/PF 45 MCG/0.5 ML SYRINGE I.M. PRN (20:00)
--- NOTE | 2019-08-19 20:00 | NUR ---
Pt is fully awake and alert, Citizen Of [place] Speaking. Pt speaks and understands little Malagasy. No c/o pain or discomfort and no acute distress noted. Oxygen is on at 2L/min per NC and O2 sat is 100%. Skin is warm and dry to touch. No signs or symptoms of hypoglycemia or hyperglycemia noted. Saline lock in RAC is without any signs of infiltration. Call light is with pt and bed alarm is on. Bed is in the lowest and locked positions. Awaiting call back from MD for diet order.
--- NOTE | 2019-08-19 21:14 | NUR ---
PAGED PAGED DR. MICHEL FOR ORDERS, SPOKE WITH GLORY
--- NOTE | 2019-08-19 21:20 | NUR ---
Flu Vaccine Status RN spoke with Sondra, Deli/Bakery Associate at [facility] who stated pt received Flu Vaccine on 04/18/19.
--- NOTE | 2019-08-19 21:54 | NUR ---
PAGED x2 SECOND PAGE SENT TO DR. MICHEL, SPOKE WITH SHOSHANA
--- NOTE | 2019-08-19 22:05 | NUR ---
Diet order received from
[2019-08-19] MEDS: CITALOPRAM HYDROBROMIDE 20 MG TABLET PO SCH (22:11)
[2019-08-19] MEDS: ATORVASTATIN 20 MG TABLET PO SCH (22:12)
[2019-08-19] MEDS: METOPROLOL TARTRATE 50 MG TABLET PO SCH (22:13)
[2019-08-20] VITALS: BP_SYST 119
[2019-08-20] MEDS: DILTIAZEM HCL 60 MG TABLET PO SCH ×5 (00:23→23:43)
[2019-08-20] MEDS: INSULIN REGULAR, HUMAN 100 UNITS/ML, 10 ML VIAL (humuLIN R) SUBCUT PRN ×4 (00:27→17:39)
--- NOTE | 2019-08-20 00:27 | NUR ---
Accucheck 249 and 4 units Regular Insulin given SQ. Skin remains warm and dry to touch. Pt was given 1 cup cranberry juice and 1 cup jello per her request. No difficulty swallowing noted.
[2019-08-20] MEDS: ALBUTEROL SULFATE 0.083% 2.5 MG/3 ML VIAL.NEB INH SCH ×4 (01:50→19:46)
[2019-08-20] MEDS: IPRATROPIUM BROM 0.5 MG/2.5 ML VIAL.NEB (ATROVENT) INH SCH ×4 (01:50→19:46)
--- NOTE | 2019-08-20 02:30 | NUR ---
Pt is sleeping at this time. No distress noted. Fall and safety precautions are in place.
--- NOTE | 2019-08-20 03:04 | NUR ---
Consultation Paged Reason for Consultation: Pleural effusion Was consult called: Y Person to be notified: Tiffanie Consulting Physician: Dr. Simms Promotion Producer Ordering Physician: Dr. Forte Face Sheet was faxed to [phone] Addendum: 08/20/19 at 0322 by Micaela Singh MT/ wrong entry for the fax number
--- NOTE | 2019-08-20 04:30 | NUR ---
Pt is sleeping without any distress noted. Fall and safety precautions are in place.
--- NOTE | 2019-08-20 06:25 | NUR ---
Pt is awake and resting quietly in bed. All pt's needs were attended to. No fall or injury noted this shift. Accucheck 177 this AM and 2 units Regular Insulin given SQ. Skin remains warm and dry to touch. Will endorse to day shift nurse.
--- NOTE | 2019-08-20 08:00 | NUR ---
received awake in bed and in no discomfort.vss.tele afib helped set up for breakfast.meds given.incontinent and changed and repositioned.continue to monitor call piper in place.
[2019-08-20] MEDS: FUROSEMIDE 40 MG TABLET PO SCH (08:48)
[2019-08-20] MEDS: METOPROLOL TARTRATE 50 MG TABLET PO SCH ×2 (08:49→20:43)
[2019-08-20] MEDS ORDERED: FLU VACC QS2019-20 36MOS UP/PF 60 MCG/0.5 ML SYRINGE I.M. PRN (09:00)
--- NOTE | 2019-08-20 09:06 | NUR ---
Nutrition Update Shaheed Scale 15 noted. Pt admitted for pleural effusion. Diet: [facility] BMI: 25.9 kg/m2 RD to follow per nutrition care standards.
--- NOTE | 2019-08-20 09:54 | NUR ---
CONSULTATION PAGED REASON FOR CONSULTATION:PLEURAL EFFUSION WAS CONSULT CALLED?Y PERSON WHO WAS NOTIFIED:GERONIMO CONSULTING PHYSICIAN:ANSELMO MENEZES GRANULATOR SPECIALTY:PULMONARY GRANULATOR PHONE NUMBER:[phone] REQUESTING PHYSICIAN:MARTHA HARTLEY
[2019-08-20 11:16] VITALS: BP_SYST 139
--- NOTE | 2019-08-20 12:00 | NUR ---
bs 263 and covered 6u per sliding scale.no c/o discomfort.repositioned to eat lunch.thoracentesis ordered and unable to sign for it and family member called and message left.tele remains afib.continue to monitor call piper in place
[2019-08-20 15:21] VITALS: BP_SYST 112
[2019-08-20] MEDS: AZITHROMYCIN 500 MG in NS 250 ML IV SCH (16:53)
--- NOTE | 2019-08-20 18:49 | NUR ---
CT CHEST DONE AND RETURNED TO ROOM VSS TELE AFIB NO C/O DISCOMFORT.TAKING DINNER TRAY.WILL CONTINUE TO MONITOR AND CALL BONILLA IN PLACE
--- NOTE | 2019-08-20 19:29 | NUR ---
REPORT TO BUSHEL WORKER RN GIVEN
--- NOTE | 2019-08-20 19:45 | NUR ---
A/A/O X3.ERITREAN SPEAKING ONLY.DENIES ANY DISCOMFORT @ THIS TIME.DENIES SOB.AFEBRILE.TELE SHOWED A-FIB CONTROLLED RATE.NOTED WITH BILATERAL UPPER EXTREMITIES WITH BRUISING.INSTRUCTED TO USE CALL LIGHT NEEDED; WITHIN REACH.
[2019-08-20] MEDS: CITALOPRAM HYDROBROMIDE 20 MG TABLET PO SCH (20:42)
[2019-08-20] MEDS: ATORVASTATIN 20 MG TABLET PO SCH (20:42)
--- NOTE | 2019-08-20 22:00 | NUR ---
INC OF URINE CLEANED & REPOSITIONED BY SCHOOL NURSE.
[2019-08-20 23:29] VITALS: BP_SYST 121
--- NOTE | 2019-08-21 | NUR ---
FINGER STICK BLD SUGAR 149.SNACKS GIVEN.BP 141/59,IA 66.DUE MED ADM.
[2019-08-21] MEDS: IPRATROPIUM BROM 0.5 MG/2.5 ML VIAL.NEB (ATROVENT) INH SCH ×4 (00:30→19:21)
[2019-08-21] MEDS: ALBUTEROL SULFATE 0.083% 2.5 MG/3 ML VIAL.NEB INH SCH ×4 (00:30→19:22)
--- NOTE | 2019-08-21 02:00 | NUR ---
RESTING COMFORTABLY IN NO ACUTE DISTRESS.
--- NOTE | 2019-08-21 04:00 | NUR ---
ASLEEP EASILY AROUSABLE.NO ACUTE DISTRESS.
[2019-08-21] MEDS: DILTIAZEM HCL 60 MG TABLET PO SCH ×3 (05:51→17:42)
--- NOTE | 2019-08-21 06:00 | NUR ---
FINGER STICK BLD SUGAR 180.REGULAR INS 2 UNITS SUB Q AD.
[2019-08-21] MEDS: INSULIN REGULAR, HUMAN 100 UNITS/ML, 10 ML VIAL (humuLIN R) SUBCUT PRN ×3 (06:44→17:49)
--- NOTE | 2019-08-21 07:00 | NUR ---
ENDORSED IN NO ACUTE DISTRESS.HOME ENERGY INSPECTOR S/S OF HYPO/HYPERGLYCEMIA NOTED. SAFETY MAINTAINED.CALL LIGHT WITHIN REACH.
[2019-08-21 07:09] LABS: BASOPHILS % (AUTO) 0.5 % (0.0-2.0); EOSINOPHILS # (AUTO) 0.1 K/uL (0.0-0.4); EOSINOPHILS % (AUTO) 1.5 % (0.0-4.0); HEMATOCRIT 33.6 % (36-48); LYMPHOCYTES # (AUTO) 0.9 K/uL (1.0-5.5); LYMPHOCYTES % (AUTO) 13.1 % (20.5-51.5); MEAN CORPUSCULAR HEMOGLOBIN 29 pg (27-31); MEAN CORPUSCULAR HGB CONC 33 % (32-36); MEAN CORPUSCULAR VOLUME 87 fL (79.0-98.0); MONOCYTES # (AUTO) 0.5 K/uL (0.0-1.0); NEUTROPHILS % (AUTO) 76.9 % (40.0-70.0); PLATELET COUNT (AUTO) 248 K/uL (130-430); RED BLOOD CELL COUNT(AUTO) 3.85 MIL/uL (4.2-6.2); RED CELL DISTRIBUTION WIDTH 17.9 % (9.0-15.0); WHITE BLOOD COUNT (AUTO) 6.5 K/uL (4.8-10.8)
--- NOTE | 2019-08-21 07:30 | NUR ---
RN OPENING NOTE REPORT WAS ENDORSED BY NIGHT NURSE. PATIENT APPEARS TO BE RESTING WITH BOTH EYES CLOSED NO SIGNS OF ANY DISTRESS, BREATHING IS EQUAL AND NON LABORED. PATIENT HAS ALL SAFETY PRECAUTIONS IN PLACE. WILL CONTINUE TO MONITOR.
[2019-08-21 07:40] LABS: ALANINE AMINOTRANSFERASE 15 U/L (12-78); ALBUMIN 2.2 g/dL (3.4-4.8); ANION GAP 6 (5-15); ASPARTATE AMINOTRANSFERASE 16 U/L (10-37); CALCIUM 8.9 mg/dL (8.4-11.0); CHLORIDE 100 mmol/L (98-107); CREATININE 1.34 mg/dL (0.55-1.30); GLUCOSE 194 mg/dL (70-99); LACTATE DEHYDROGENASE 161 U/L (81-234); SODIUM SERUM 135 mmol/L (136-145); TOTAL BILIRUBIN 0.5 mg/dL (0.0-1.0); UREA NITROGEN, BLOOD 46 mg/dL (8-21)
[2019-08-21 07:47] VITALS: BP_SYST 142
[2019-08-21] MEDS: METOPROLOL TARTRATE 50 MG TABLET PO SCH ×2 (08:15→20:32)
--- NOTE | 2019-08-21 08:15 | NUR ---
MEDICATION PATIENTS SCHEDULED MEDICATION GIVEN PER ORDER. PATIENT IS AWAKE AND ALERT, TOLERATED MEDICATION WELL. PATIENT IS EATING BREAKFAST. PATIENT EDUCATED INPATIENT SERVICES RN LIGHT FOR ASSISTANCE. CALL LIGHT IS WITH PATIENT. PATIENT SHOWS NO SIGNS OF ANY DISTRESS, BREATHING IS EQUAL AND NON LABORED. PATIENT HAS NO OTHER NEEDS AT THIS TIME. WILL CONTINUE TO MONITOR.
[2019-08-21] MEDS: FUROSEMIDE 40 MG TABLET PO SCH (08:16)
--- NOTE | 2019-08-21 10:00 | NUR ---
thoracentesis thoracentesis done, removed 40 ml removed and sent to the lab. patient shows no signs of any distress, breathing is equal and non labored. patient has all safety precautions in place. call light is with her ,educated to use for assistance. patient is close to nurses station. no other needs at this time. will continue to monitor.
[2019-08-21 12:37] VITALS: BP_SYST 133
--- NOTE | 2019-08-21 12:43 | NUR ---
accu check/ coverage given patients scheduled medication given per order. patients accu check done, coverage given per order. patient is awake and alert sitting up in bed, no signs of any distress, breathing is equal and non labored. patient has all safety precautions in place. call light is with her educated to use for assistance. will continue to monitor. Addendum: 08/21/19 at 1245 by Toya Wells RN informed dr. willams at nurses station of [facility] to see patient.
[2019-08-21] MEDS: POTASSIUM CHLORIDE 20 MEQ TAB.PRT.SR PO SCH ×2 (14:04→17:38)
--- NOTE | 2019-08-21 14:11 | NUR ---
medication patients scheduled medication given per order. patient is awake and alert sitting up in bed, no signs of any distress, breathing is equal and non labored. all safety precautions in place. call light is with her. no other needs at this time. will continue to monitor.
[2019-08-21 15:17] LABS: INR 1.3 (0.8-1.2); PROTHROMBIN TIME 12.5 SECS (9.5-12.5)
[2019-08-21] MEDS: AZITHROMYCIN 500 MG in NS 250 ML IV SCH (15:42)
--- NOTE | 2019-08-21 15:42 | NUR ---
medication patients iv antibiotics started per order. patient is sitting up in bed. no signs of any distress, breathing is equal and non labored. patient does have a cough but is non productive. patient has call light with her educated to use for assistance. patient has no other needs at this time. patient is close to nurses station. will continue to monitor. Addendum: 08/21/19 at 1558 by Toya Wells RN INCONTINENCE CARE PROVIDED WITH MACHINE SETTER AUTOMATIC.
[2019-08-21 16:29] VITALS: BP_SYST 129
[2019-08-21 17:41] LABS: BF APPEARANCE UNSPUN HAZY (CLEAR); SOURCE/TYPE ,BODY FLUID PLEURAL
[2019-08-21 17:43] LABS: BODY FLUID COLOR DARK YELLOW (LT YELLOW); BODY FLUID TOTAL VOLUME 500 mL; EOSINOPHIL, BODY FLUID 0 %; LYMPHOCYTES, BODY FLUID 94 %; MONOCYTES,BODY FLUID 6 %; NEUTROPHIL, BODY FLUID 0 %; RBC, BODY FLUID 4102 /uL; WBC, BODY FLUID 102 /uL
--- NOTE | 2019-08-21 17:54 | NUR ---
accu check/ medication patients scheduled medication given per order. patient accu check done, coverage given per order. patient is awake and alert sitting up in bed. patient shows no signs of any distress,breathing is equal and non labored. all safety precautions in place. patient has no other needs at this time.
[2019-08-21] MEDS ORDERED: WARFARIN SODIUM 3 MG TABLET PO SCH (18:00)
[2019-08-21 18:04] LABS: BODY FLUID SOURCE/ TYPE PLEURAL
--- NOTE | 2019-08-21 18:51 | NUR ---
RN CLOSING NOTE PATIENT IS AWAKE AND ALERT SITTING UP IN BED, NO SIGNS OF ANY DISTRESS,BREATHING IS EQUAL AND NON LABORED. PATIENT HAS ALL SAFETY PRECAUTIONS IN PLACE. PATIENT IS CLOSE TO NURSES STATION. PATIENT HAS NO COMPLAINTS AT THIS TIME.
--- NOTE | 2019-08-21 19:45 | NUR ---
A/A/O X2. DENIES ANY DISCOMFORT.DENIES SOB @ THIS TIME.NOTED BILATERAL UPPER EXTREMITIES WITH BRUISING.RIGHT LOWER BACK BAND AID DRY & INTACT. TELE SHOWED CONTROLLED A-FIB.INSTRUCTED TO USE CALL LIGHT NEEDED;WITHIN REACH.
[2019-08-21 20:00] VITALS: BP_SYST 127
[2019-08-21 20:05] LABS: BODY FLUID GLUCOSE 193 mg/dL
[2019-08-21 20:06] LABS: BODY FLUID TOTAL PROTEIN 1.8 g/dL
[2019-08-21] MEDS: ATORVASTATIN 20 MG TABLET PO SCH (20:31)
[2019-08-21] MEDS: CITALOPRAM HYDROBROMIDE 20 MG TABLET PO SCH (20:31)
--- NOTE | 2019-08-21 22:00 | NUR ---
RESTING COMFORTABLY IN NO ACUTE DISTRESS.REPOSITIONED.
[2019-08-21] MEDS ORDERED: WARFARIN SODIUM 2 MG TABLET ONE (23:15)
--- NOTE | 2019-08-22 | NUR ---
DUE MED ADM.FINGER STICK BLD [id number].
[2019-08-22] MEDS: DILTIAZEM HCL 60 MG TABLET PO SCH ×4 (00:16→17:31)
[2019-08-22 00:30] VITALS: BP_SYST 136
--- NOTE | 2019-08-22 02:00 | NUR ---
ASLEEP BUT EASILY AROUSABLE.NO ACUTE DISTRESS NOTED.
[2019-08-22] MEDS: ALBUTEROL SULFATE 0.083% 2.5 MG/3 ML VIAL.NEB INH SCH ×4 (02:41→19:44)
[2019-08-22] MEDS: IPRATROPIUM BROM 0.5 MG/2.5 ML VIAL.NEB (ATROVENT) INH SCH ×4 (02:41→19:44)
--- NOTE | 2019-08-22 04:00 | NUR ---
NOTED WITH OCCASIONAL NON PRODUCTIVE COUGH.REPOSITIONED.
[2019-08-22] MEDS: INSULIN REGULAR, HUMAN 100 UNITS/ML, 10 ML VIAL (humuLIN R) SUBCUT PRN ×3 (05:49→17:34)
--- NOTE | 2019-08-22 06:00 | NUR ---
FINGER STICK BLD SUGAR 177.REGULAR 2 UNITS SUB Q ADM.
--- NOTE | 2019-08-22 06:52 | NUR ---
ENDORSED RESTING COMFORTABLY IN NO ACUTE DISTRESS.NO S/S OF HYPO/HYPERGLYCEMIA NOTED.SAFETY MAINTAINED. CALL LIGHT WITHIN REACH.
--- NOTE | 2019-08-22 07:50 | NUR ---
AM ASSESSMENT. PT ALERT, INCONTINENT OF BLADDER, HYGIENE RENDERED, GENTLY HANDLED, TURNED PT, ECCHYMOSIS TO ARMS, PT TAKES COUMADIN, WILL CONTINUE TO MONITOR.
[2019-08-22 07:52] LABS: ANION GAP 3 (5-15); CHLORIDE 102 mmol/L (98-107); CREATININE 1.46 mg/dL (0.55-1.30); GLUCOSE 224 mg/dL (70-99); SODIUM SERUM 134 mmol/L (136-145); UREA NITROGEN, BLOOD 45 mg/dL (8-21)
[2019-08-22 07:59] LABS: INR 1.3 (0.8-1.2)
[2019-08-22 08:00] VITALS: BP_SYST 115
[2019-08-22] MEDS: FUROSEMIDE 40 MG TABLET PO SCH (09:31)
[2019-08-22] MEDS: METOPROLOL TARTRATE 50 MG TABLET PO SCH ×2 (09:32→21:42)
--- NOTE | 2019-08-22 09:38 | NUR ---
CONSULTATION PAGED/CALLED Reason for Consultation: [] AFIB Person Who was Notified: [] DR ASHFORD Consulting Physician: [] DR ASHFORD Volleyball Assembler Specialty: [] CARDIOLOGY Ordering Physician: [] DR Meera MICHEL
[2019-08-22 11:23] VITALS: BP_SYST 114
--- NOTE | 2019-08-22 15:12 | NUR ---
FAMILY. CALL RECEIVED FROM [facility], (SON), UPDATED ON PT'S STATUS, PT WITH LOW APPETITE.
[2019-08-22 15:30] VITALS: BP_SYST 120
--- NOTE | 2019-08-22 16:13 | NUR ---
Dietitian Recommendations * Recommend CCHO, mechanical soft diet with Glucerna TID (Provides additional 660 kcal/day and 30 gm/day of protein) * Encourage PO intake LP, RD Please refer to Nutrition Assessment for details. Addendum: 08/22/19 at 1616 by Mery NELSON Amended: Links added.
[2019-08-22] MEDS: AZITHROMYCIN 500 MG in NS 250 ML IV SCH (16:20)
--- NOTE | 2019-08-22 16:39 | NUR ---
DC Planning: late entry: 1206: by KINA Santana, faxed Raoul delgadillo inquiry to [facility] # [phone], tel # [phone]. CM phoned/IVYM [facility] to f/u the eval progress. -- CM to f/u again in am. Addendum: 08/23/19 at 1318 by Adam Vail RN >> Late entry: for 08/22/19 at 1630: KODY s/w [facility]/son re plan to transfer pt to [facility] per dr. Forte's recommendation/order. Son agreed with the POC and transfer to [facility] . CM will update once pt is accepted and has bed assignment.
--- NOTE | 2019-08-22 16:44 | NUR ---
ESBL. CALLED DR MICHEL, REPORTED E COLI, ESBL URINE RESULT, NEW ORDERS RECEIVED.
[2019-08-22] MEDS ORDERED: WARFARIN SODIUM 2 MG TABLET PO SCH (17:00)
--- NOTE | 2019-08-22 17:33 | NUR ---
DIET. ASSISTED PATIENT AT DINNER TIME, CHICKEN, RICE ON THE MENU,PATIENT PUSHES NURSE'S HAND AWAY, ONLY HAD A CUP OF APPLE JUICE, SAYING "I DON'T WANT ANYTHING.'
[2019-08-22] MEDS: ERTAPENEM SODIUM 1 GM in NS 50 ML IV SCH (17:49)
--- NOTE | 2019-08-22 19:45 | NUR ---
A/A/OX2.BULGARIAN SPEAKING.SPEAKS LITTLE PERSIAN.DENIES ANY DISCOMFORT @ THIS TIME.DENIES SOB.TELE SHOWED CONTROLLED A-FIB.DENIES CP. NOTED BILATERAL UPPER EXTREMITIES WITH BRUISING.INSTRUCTED TO USE CALL LIGHT NEEDED;WITHIN REACH.CONTACT ISOLATION OBSERVED.
[2019-08-22 20:00] VITALS: BP_SYST 125
[2019-08-22] MEDS: ATORVASTATIN 20 MG TABLET PO SCH (21:41)
[2019-08-22] MEDS: CITALOPRAM HYDROBROMIDE 20 MG TABLET PO SCH (21:42)
--- NOTE | 2019-08-22 22:00 | NUR ---
RESTING COMFORTABLY IN N ACUTE DISTRESS.TELE SHOWED A-FIB.
--- NOTE | 2019-08-23 | NUR ---
FINGER STICK BLD SUGAR 127.CARDIZEM HELD HR 58.WILL CON'T TO MONITOR.REPOSITION.
[2019-08-23 00:03] VITALS: BP_SYST 129
[2019-08-23] MEDS: ALBUTEROL SULFATE 0.083% 2.5 MG/3 ML VIAL.NEB INH SCH ×4 (01:33→20:05)
[2019-08-23] MEDS: IPRATROPIUM BROM 0.5 MG/2.5 ML VIAL.NEB (ATROVENT) INH SCH ×4 (01:33→20:05)
--- NOTE | 2019-08-23 02:00 | NUR ---
ASLEEP IN NO ACUTE DISTRESS.REPOSITIONED.CALL LIGHT WITHIN REACH.
--- NOTE | 2019-08-23 04:00 | NUR ---
REPOSITIONED.NO ACUTE DISTRESS.
[2019-08-23] MEDS: DILTIAZEM HCL 60 MG TABLET PO SCH ×4 (06:12→17:26)
--- NOTE | 2019-08-23 06:45 | NUR ---
ENDORSED IN NO ACUTE DISTRESS.NO S/S OF HYPO/HYPERGLYCEMIA NOTED.SAFETY MAINTAINED.
[2019-08-23 08:00] VITALS: BP_SYST 116
--- NOTE | 2019-08-23 08:00 | NUR ---
Initial notes- In bed, awake, alert. confused. denies any chest pain or shortness of breath. On o2 2l, tolerating well. repositioned. Safety precaution observed. maintain contact isolation. bed alarm on. will monitor.
[2019-08-23] MEDS: FUROSEMIDE 40 MG TABLET PO SCH (08:38)
[2019-08-23] MEDS: METOPROLOL TARTRATE 50 MG TABLET PO SCH ×2 (08:39→20:55)
[2019-08-23 08:53] LABS: INR 1.6 (0.8-1.2); PROTHROMBIN TIME 16.3 SECS (9.5-12.5)
--- NOTE | 2019-08-23 10:00 | NUR ---
Has incontinent of urine. change and repositioned with the FIRE CREW WORKER. no distress noted. will continue to monitor.
[2019-08-23 11:22] VITALS: BP_SYST 128
[2019-08-23] MEDS: INSULIN REGULAR, HUMAN 100 UNITS/ML, 10 ML VIAL (humuLIN R) SUBCUT PRN ×2 (12:11→17:27)
--- NOTE | 2019-08-23 12:14 | NUR ---
Pt refuses to eat lunch, pt only drinks her ensure.
--- NOTE | 2019-08-23 13:00 | NUR ---
DC Planning: f/u with Kim/Raoul # [phone], she did not get the referral package yesterday. CM refaxed to her # [phone]. Addendum: 08/23/19 at 1424 by Adam Vail RN F/U with Kim, still doing the evaluation. She will call nursing unit once accept and has bed assignment. -- CHEIKH Sosa made aware and will assist arranging ambulance transfer. DC package placed in nursing unit.
--- NOTE | 2019-08-23 14:33 | NUR ---
Notes- Resting at this time. Denies any pain or discomfort. No acute distress noted. waiting for [facility]AC eval.
[2019-08-23 15:16] VITALS: BP_SYST 147
--- NOTE | 2019-08-23 16:26 | NUR ---
NOTES- RESTING IN BED, REPOSITIONED. NO SHORTNESS OF BREATH. SEEN BY DR. RUSHING AT BEDSIDE
[2019-08-23] MEDS: ERTAPENEM SODIUM 1 GM in NS 50 ML IV SCH (17:25)
--- NOTE | 2019-08-23 17:52 | NUR ---
Spoke to Ana, watch caser at [facility]. pt is accepted but no staff to accept patient at this time. they will call in the morning again.
--- NOTE | 2019-08-23 18:27 | NUR ---
notes- Resting in bed, awake. Denies any shortness of breath. pt takes off her oxygen. no distress noted. IV is leaking, remove IV at this time. will endorse
--- NOTE | 2019-08-23 19:45 | NUR ---
A/A/O X2.DENIES ANY DISCOMFORT NOR SOB @ THIS TIME.V/S STABLE.AFEBRILE. TELE SHOWED A-FIB CONTROLLED. NOTED BILATERAL UPPER EXTREMITIES WITH BRUISING. REPOSITIONED.
[2019-08-23 20:00] VITALS: BP_SYST 131
[2019-08-23] MEDS: ATORVASTATIN 20 MG TABLET PO SCH (20:55)
[2019-08-23] MEDS: CITALOPRAM HYDROBROMIDE 20 MG TABLET PO SCH (20:55)
--- NOTE | 2019-08-23 21:00 | NUR ---
PM CARE DONE BY JEWEL INSERTER.REPOSITIONED.
--- NOTE | 2019-08-23 21:00 | NUR ---
IV INSERTED ON HER LAC X1 ANGIO#22 BY RN.
--- NOTE | 2019-08-23 22:00 | NUR ---
RESTING COMFORTABLY IN NO ACUTE DISTRESS;CALL LIGHT WITHIN REACH.
--- NOTE | 2019-08-24 | NUR ---
FINGER STICK BLD SUGAR 148. CARDIZEM HELD.HR 59.
[2019-08-24 00:09] VITALS: BP_SYST 148
[2019-08-24] MEDS: IPRATROPIUM BROM 0.5 MG/2.5 ML VIAL.NEB (ATROVENT) INH SCH ×3 (02:14→14:06)
[2019-08-24] MEDS: ALBUTEROL SULFATE 0.083% 2.5 MG/3 ML VIAL.NEB INH SCH ×3 (02:15→14:06)
--- NOTE | 2019-08-24 04:00 | NUR ---
NO ACUTE DISTRESS.TELE SHOWED A-FIB.
--- NOTE | 2019-08-24 06:45 | NUR ---
ENDORSED IN NO ACUTE DISTRESS.SAFETY MAINTAINED.CALL LIGHT WITHIN REACH.
[2019-08-24] MEDS: DILTIAZEM HCL 60 MG TABLET PO SCH ×3 (06:48→12:08)
--- NOTE | 2019-08-24 07:31 | NUR ---
Initial notes: Patient alert, awake and oriented x1. Stable. On contact precaution. On 2l NC. Safety measures in placed. Report received at bedside.
[2019-08-24 08:00] VITALS: BP_SYST 130
[2019-08-24 08:11] LABS: INR 1.5 (0.8-1.2); PROTHROMBIN TIME 15.4 SECS (9.5-12.5)
--- NOTE | 2019-08-24 09:47 | NUR ---
Discharge Planning: GARDENING INSTRUCTOR received call from Rach ([phone]) with [facility]; pt has been accepted at [facility]; pt will go to room 315C; Rach asked for the pt to be transferred before 5:00pm. Report number: [phone]. [facility] will arrange transportation. Addendum: 08/24/19 at 1013 by Toya Lopes LCSW ALS transport set up with [facility] ([phone]); lease picker at 1:00pm; packet updated and at nurses station.
[2019-08-24] MEDS: METOPROLOL TARTRATE 50 MG TABLET PO SCH (10:20)
[2019-08-24 10:21] VITALS: BP_SYST 123
[2019-08-24] MEDS: FUROSEMIDE 40 MG TABLET PO SCH (10:21)
--- NOTE | 2019-08-24 11:08 | NUR ---
Raoul: Report given to Laura. She requested patient to be transferred after 14:00. Informed Scarlett, community service worker for ambulance arrangement.
[2019-08-24 11:10] VITALS: BP_SYST 127
[2019-08-24] MEDS: INSULIN REGULAR, HUMAN 100 UNITS/ML, 10 ML VIAL (humuLIN R) SUBCUT PRN (12:03)
[2019-08-24 12:25] VITALS: BP_SYST 127
--- NOTE | 2019-08-24 14:22 | NUR ---
PT TRANSFERRED Report given to [facility]. Transfer packet with Transfer Orders and Medication Reconciliation form given to EMT with report. Exitcare provided. [facility] ID band removed, replaced with ID band with pt's name and . IV catheter in placed for antibiotic tx. All belongings sent with patient. Patient left floor via gurney escorted by EMT in no distress.
== END 2019-08-24 14:22 | DRG 291 ==
LOC: SED 12:21 → STU 15:20
PROVIDERS: ADMIT Internal Medicine Hospice and Palliative Medicine; ATTEND Internal Medicine Hospice and Palliative Medicine
PROC: 0W993ZZ Drainage of Right Pleural Cavity, Percutaneous Approach (ICD-10-PCS; principal; 2019-08-21)
DX: I13.0 Hypertensive heart and chronic kidney disease with heart failure and stage 1 through stage 4 chronic kidney disease, or unspecified chronic kidney disease (principal); I50.33 Acute on chronic diastolic (congestive) heart failure; E43 Unspecified severe protein-calorie malnutrition; J91.8 Pleural effusion in other conditions classified elsewhere; N39.0 Urinary tract infection, site not specified; I48.20 Chronic atrial fibrillation, unspecified; D68.59 Other primary thrombophilia; E11.42 Type 2 diabetes mellitus with diabetic polyneuropathy; F03.90 Unspecified dementia, unspecified severity, without behavioral disturbance, psychotic disturbance, mood disturbance, and anxiety; M19.90 Unspecified osteoarthritis, unspecified site; N18.9 Chronic kidney disease, unspecified; B96.20 Unspecified Escherichia coli [E. coli] as the cause of diseases classified elsewhere; D63.8 Anemia in other chronic diseases classified elsewhere; Z85.038 Personal history of other malignant neoplasm of large intestine; Z87.891 Personal history of nicotine dependence; Z88.0 Allergy status to penicillin; Z79.899 Other long term (current) drug therapy; Z90.49 Acquired absence of other specified parts of digestive tract; Z68.25 Body mass index [BMI] 25.0-25.9, adult
CPT/HCPCS: 32555; 36415; 71045; 71250-TC; 80048; 80053; 81000-TC; 82947-TC; 82962; 83605; 83615-TC; 83735-TC; 83880; 84132-TC; 84157-TC; 84484; 85025; 85610-TC; 85730-TC; 87040-TC; 87070-TC; 87081; 87086; 87101; 87116; 87186-TC; 88108; 88305; 89051-TC; 89060-TC; 93005; 94640; 94760; 96365; 96368; 99285; C1729; G0378; J0456; J1335; J1815; J1956; J7050; J7613

== ENCOUNTER 2019-09-28 23:08 | Inpatient (IN) | payer OTHER ==
[~2019-09-28] VITALS: Ht 167.6 cm; Wt 62.0 kg
[~2019-09-28 23:08] MED LIST changes: -ACET-2165 PO; +ACET325T53 PO; -ASCO500C18 PO; +BISA10SU61 RC; +ESCI10TA PO; +FLEETMO RC; -INSULIN LISPRO SQ; -NYSTATIN POWDER TP; -WARF1TAB2 PO; +WARF2TAB2 PO; +WARF3TAB PO; -ZINC50TA69 PO
[2019-09-28 23:12] VITALS: BP_SYST 159
[2019-09-28] MEDS ORDERED: NA P133E41 RC (23:33)
[2019-09-28] MEDS ORDERED: IPRA3AMP9 INH (23:59)
[2019-09-29] MEDS ORDERED: IPRA3AMP9 INH (00:02)
[2019-09-29 00:05] LABS: PLATELET COUNT (AUTO) 269 K/uL (130-430)
[2019-09-29] MEDS ORDERED: SSREG SUBCUT (00:08)
[2019-09-29 00:11] LABS: BASOPHILS # (AUTO) 0.1 K/uL (0.0-0.2); EOSINOPHILS # (AUTO) 0.3 K/uL (0.0-0.4); EOSINOPHILS % (AUTO) 5.2 % (0.0-4.0); HEMATOCRIT 34.5 % (36-48); HEMOGLOBIN 11.1 g/dL (12.0-16.0); LYMPHOCYTES # (AUTO) 1.1 K/uL (1.0-5.5); LYMPHOCYTES % (AUTO) 16.4 % (20.5-51.5); MEAN CORPUSCULAR HEMOGLOBIN 28 pg (27-31); MEAN CORPUSCULAR HGB CONC 32 % (32-36); MEAN CORPUSCULAR VOLUME 85 fL (79.0-98.0); MONOCYTES # (AUTO) 0.6 K/uL (0.0-1.0); MONOCYTES % (AUTO) 8.9 % (1.7-9.3); NEUTROPHILS # (AUTO) 4.5 K/uL (1.8-7.7); NEUTROPHILS % (AUTO) 68.5 % (40.0-70.0); RED BLOOD CELL COUNT(AUTO) 4.05 MIL/uL (4.2-6.2); RED CELL DISTRIBUTION WIDTH 17.5 % (9.0-15.0); WHITE BLOOD COUNT (AUTO) 6.6 K/uL (4.8-10.8)
[2019-09-29 00:14] LABS: ANION GAP 7 (5-15); CALCIUM 9.1 mg/dL (8.4-11.0); CHLORIDE 100 mmol/L (98-107); CREATININE 1.28 mg/dL (0.55-1.30); GLUCOSE 140 mg/dL (70-99); POTASSIUM 3.7 mmol/L (3.5-5.1); SODIUM SERUM 141 mmol/L (136-145); UREA NITROGEN, BLOOD 21 mg/dL (8-21)
[2019-09-29] MEDS ORDERED: NYST15PO2 TP ×2 (00:17→00:21)
[2019-09-29] MEDS ORDERED: NYST1POW16 MC (00:20)
[2019-09-29] MEDS ORDERED: ZINC56.7 TP (00:23)
[2019-09-29 00:34] LABS: ALANINE AMINOTRANSFERASE 12 U/L (12-78); ALBUMIN 2.6 g/dL (3.4-4.8); ASPARTATE AMINOTRANSFERASE 16 U/L (10-37); TOTAL BILIRUBIN 0.7 mg/dL (0.0-1.0)
[2019-09-29] MEDS ORDERED: FUROSEMIDE 40 MG/4 ML VIAL IVP ONE ×2 (01:30→11:00)
[2019-09-29 01:55] LABS: BILIRUBIN,URINE NEGATIVE (NEGATIVE); BLOOD, URINE NEGATIVE (NEGATIVE); CLARITY/URINE CLEAR (CLEAR); COLOR,URINE YELLOW (YELLOW); GLUCOSE,URINE NEGATIVE (NEGATIVE); KETONES,URINE NEGATIVE (NEGATIVE); LEUKOCYTE ESTERASE ,URINE 2+ (NEGATIVE); NITRITE, URINE POSITIVE (NEGATIVE); PH,URINE 5.5 (5.0-8.0); PROTEIN URINE NEGATIVE (NEGATIVE); UROBILINOGEN,URINE 0.2 (0.2-1.0)
[2019-09-29] MEDS ORDERED: LEVOFLOXACIN 500 MG/D5W 100 ML IV ONE (02:45)
[2019-09-29] MEDS ORDERED: IPRATROPIUM/ALBUTEROL SULFATE 3 ML AMPUL.NEB (DUONEB) INH PRN ×3 (02:45→10:30)
[2019-09-29 02:53] LABS: BACTERIA,URINE MANY /HPF (None Seen); RBC,URINE 0-3 /HPF (0-3); WBC,URINE 50-80 /HPF (0-3)
[2019-09-29 03:44] VITALS: BP_SYST 137
[2019-09-29 08:10] VITALS: BP_SYST 147
[2019-09-29 09:52] VITALS: BP_SYST 147
[2019-09-29] MEDS ORDERED: MILK OF MAGNESIA 30 ML UDC PO PRN (10:30)
[2019-09-29] MEDS ORDERED: ACETAMINOPHEN 325 MG TABLET PO PRN ×2 (10:30)
[2019-09-29] MEDS ORDERED: INSULIN REGULAR, HUMAN 100 UNITS/ML, 10 ML VIAL (humuLIN R) SUBCUT PRN (10:30)
[2019-09-29] MEDS ORDERED: SODIUM PHOSPHATE,MONO-DIBASIC 133 ML ENEMA RC PRN (10:30)
[2019-09-29] MEDS ORDERED: MULTIVITAMINS TAB 1 TABLET PO ONE (11:00)
[2019-09-29] MEDS ORDERED: METOPROLOL TARTRATE 50 MG TABLET PO ONE (11:00)
[2019-09-29] MEDS ORDERED: DILTIAZEM HCL 60 MG TABLET PO ONE (11:00)
[2019-09-29] MEDS ORDERED: D5W 1,000 ML IV PRN (11:45)
[2019-09-29] MEDS ORDERED: DEXTROSE 50%-WATER 50 ML DISP.SYRIN IVP PRN (11:45)
[2019-09-29] MEDS ORDERED: GLUCOSE 15 GM GEL (in 37.5 GM TUBE) PO PRN (11:45)
[2019-09-29] MEDS: DILTIAZEM HCL 60 MG TABLET PO SCH ×2 (11:49→17:03)
[2019-09-29 12:22] VITALS: BP_SYST 141
[2019-09-29 16:54] VITALS: BP_SYST 136
[2019-09-29] MEDS: INSULIN REGULAR, HUMAN 100 UNITS/ML, 10 ML VIAL (humuLIN R) SUBCUT PRN (17:07)
[2019-09-29 20:00] VITALS: BP_SYST 122
[2019-09-29] MEDS: ATORVASTATIN 20 MG TABLET PO SCH (20:09)
[2019-09-29] MEDS: METOPROLOL TARTRATE 50 MG TABLET PO SCH (20:10)
[2019-09-29] MEDS ORDERED: cefTRIAXone 1 GM IVPB PREMIX 50 ML IV ONE (21:02)
[2019-09-29] MEDS: cefTRIAXone 1 GM in D5W 50 ML IV SCH (21:53)
[2019-09-30] MEDS: DILTIAZEM HCL 60 MG TABLET PO SCH ×5 (00:25→23:47)
[2019-09-30 01:02] VITALS: BP_SYST 130
[2019-09-30 08:06] VITALS: BP_SYST 143
[2019-09-30] MEDS: MULTIVITAMINS TAB 1 TABLET PO SCH (08:38)
[2019-09-30] MEDS: METOPROLOL TARTRATE 50 MG TABLET PO SCH ×2 (08:39→20:33)
[2019-09-30] MEDS: FUROSEMIDE 40 MG/4 ML VIAL IVP SCH (08:40)
[2019-09-30 12:15] VITALS: BP_SYST 143
[2019-09-30 16:53] VITALS: BP_SYST 128
[2019-09-30] MEDS: cefTRIAXone 1 GM in D5W 50 ML IV SCH (17:36)
[2019-09-30 20:15] VITALS: BP_SYST 116
[2019-09-30] MEDS: ATORVASTATIN 20 MG TABLET PO SCH (20:32)
[2019-09-30 23:30] VITALS: BP_SYST 134
[2019-10-01] MEDS: DILTIAZEM HCL 60 MG TABLET PO SCH ×4 (06:47→23:37)
[2019-10-01 08:00] VITALS: BP_SYST 124
[2019-10-01] MEDS: METOPROLOL TARTRATE 50 MG TABLET PO SCH ×2 (08:27→20:11)
[2019-10-01] MEDS: MULTIVITAMINS TAB 1 TABLET PO SCH (08:27)
[2019-10-01] MEDS: FUROSEMIDE 40 MG/4 ML VIAL IVP SCH (08:28)
[2019-10-01] MEDS: INSULIN REGULAR, HUMAN 100 UNITS/ML, 10 ML VIAL (humuLIN R) SUBCUT PRN ×2 (11:47→20:14)
[2019-10-01 12:35] VITALS: BP_SYST 112
[2019-10-01 16:35] VITALS: BP_SYST 119
[2019-10-01] MEDS: cefTRIAXone 1 GM in D5W 50 ML IV SCH (17:46)
[2019-10-01 20:00] VITALS: BP_SYST 105
[2019-10-01] MEDS: ATORVASTATIN 20 MG TABLET PO SCH (20:06)
[2019-10-02 02:20] VITALS: BP_SYST 102
[2019-10-02] MEDS: DILTIAZEM HCL 60 MG TABLET PO SCH ×3 (05:10→17:10)
[2019-10-02 08:02] VITALS: BP_SYST 122
[2019-10-02 08:58] LABS: ANION GAP 8 (5-15); CHLORIDE 99 mmol/L (98-107); CREATININE 1.47 mg/dL (0.55-1.30); GLUCOSE 127 mg/dL (70-99); POTASSIUM 3.4 mmol/L (3.5-5.1); SODIUM SERUM 140 mmol/L (136-145); UREA NITROGEN, BLOOD 23 mg/dL (8-21)
[2019-10-02 09:03] LABS: ALANINE AMINOTRANSFERASE 11 U/L (12-78); ALBUMIN 2.4 g/dL (3.4-4.8); ASPARTATE AMINOTRANSFERASE 15 U/L (10-37); TOTAL BILIRUBIN 0.4 mg/dL (0.0-1.0)
[2019-10-02 09:05] LABS: BASOPHILS # (AUTO) 0.1 K/uL (0.0-0.2); EOSINOPHILS # (AUTO) 0.5 K/uL (0.0-0.4); EOSINOPHILS % (AUTO) 6.8 % (0.0-4.0); HEMATOCRIT 34.5 % (36-48); HEMOGLOBIN 11.1 g/dL (12.0-16.0); LYMPHOCYTES # (AUTO) 1.1 K/uL (1.0-5.5); LYMPHOCYTES % (AUTO) 13.5 % (20.5-51.5); MEAN CORPUSCULAR HEMOGLOBIN 28 pg (27-31); MEAN CORPUSCULAR HGB CONC 32 % (32-36); MEAN CORPUSCULAR VOLUME 85 fL (79.0-98.0); MONOCYTES # (AUTO) 0.6 K/uL (0.0-1.0); MONOCYTES % (AUTO) 7.6 % (1.7-9.3); NEUTROPHILS # (AUTO) 5.7 K/uL (1.8-7.7); NEUTROPHILS % (AUTO) 71.1 % (40.0-70.0); PLATELET COUNT (AUTO) 249 K/uL (130-430); RED BLOOD CELL COUNT(AUTO) 4.04 MIL/uL (4.2-6.2); RED CELL DISTRIBUTION WIDTH 17.5 % (9.0-15.0)
[2019-10-02] MEDS: FUROSEMIDE 40 MG/4 ML VIAL IVP SCH (09:29)
[2019-10-02] MEDS: MULTIVITAMINS TAB 1 TABLET PO SCH (09:30)
[2019-10-02] MEDS: METOPROLOL TARTRATE 50 MG TABLET PO SCH ×2 (09:30→21:00)
[2019-10-02] MEDS ORDERED: POTASSIUM CHLORIDE 20 MEQ TAB.PRT.SR PO ONE (11:15)
[2019-10-02] MEDS: INSULIN REGULAR, HUMAN 100 UNITS/ML, 10 ML VIAL (humuLIN R) SUBCUT PRN ×3 (11:58→21:43)
[2019-10-02 12:34] VITALS: BP_SYST 126
[2019-10-02 17:32] VITALS: BP_SYST 138
[2019-10-02] MEDS: cefTRIAXone 1 GM in D5W 50 ML IV SCH (18:05)
[2019-10-02 20:00] VITALS: BP_SYST 132
[2019-10-02] MEDS: ATORVASTATIN 20 MG TABLET PO SCH (21:40)
[2019-10-03] VITALS (7 sets, daily range): BP systolic 128–147
[2019-10-03] MEDS: DILTIAZEM HCL 60 MG TABLET PO SCH ×4 (00:21→17:08)
[2019-10-03] MEDS: FUROSEMIDE 40 MG/4 ML VIAL IVP SCH (09:25)
[2019-10-03] MEDS: MULTIVITAMINS TAB 1 TABLET PO SCH (09:25)
[2019-10-03] MEDS: METOPROLOL TARTRATE 50 MG TABLET PO SCH (09:25)
[2019-10-03] MEDS ORDERED: ERTAPENEM SODIUM 1 GM in NS 50 ML IV SCH (10:30)
[2019-10-03] MEDS ORDERED: LACT10SO6 PO (10:47)
[2019-10-03 11:11] LABS: INR 1.1 (0.8-1.2); PROTHROMBIN TIME 10.7 SECS (9.5-12.5)
[2019-10-03] MEDS ORDERED: INVANZ 1 GM IV (11:26)
[2019-10-03] MEDS ORDERED: WARFARIN SODIUM 3 MG TABLET PO SCH (18:00)
== END 2019-10-03 19:15 | DRG 291 ==
LOC: SED 23:08 → STU 09-29 02:39 → SED 09-29 03:20 → STU 09-29 03:51
PROVIDERS: ADMIT Internal Medicine Hospice and Palliative Medicine; ATTEND Internal Medicine Hospice and Palliative Medicine
PROC: 0BJQ3ZZ Inspection of Pleura, Percutaneous Approach (ICD-10-PCS; principal; 2019-09-30)
DX: I11.0 Hypertensive heart disease with heart failure (principal); J96.01 Acute respiratory failure with hypoxia; I48.20 Chronic atrial fibrillation, unspecified; N39.0 Urinary tract infection, site not specified; E11.40 Type 2 diabetes mellitus with diabetic neuropathy, unspecified; B96.20 Unspecified Escherichia coli [E. coli] as the cause of diseases classified elsewhere; I50.33 Acute on chronic diastolic (congestive) heart failure; J44.9 Chronic obstructive pulmonary disease, unspecified; Z87.891 Personal history of nicotine dependence; Z85.038 Personal history of other malignant neoplasm of large intestine; Z88.0 Allergy status to penicillin; Z79.899 Other long term (current) drug therapy
CPT/HCPCS: 32555; 36415; 71045; 80053; 81000-TC; 82962; 83605; 83880; 84484; 85025; 85610-TC; 86710; 87040-TC; 87081; 87086; 87186-TC; 93005; 93306; 94760; 96374; 99285; C1729; G0378; J0696; J1335; J1815; J1940; J1956; J7060

== ENCOUNTER 2019-11-01 13:04 | Inpatient (IN) | payer OTHER, SELFPAY ==
[~2019-11-01] VITALS: Ht 162.6 cm; Wt 62.1 kg
[~2019-11-01 13:04] MED LIST changes: -ALLO100T PO; -ESCI10TA PO; -FLEETMO RC; +INVANZ 1 GM IV; +IPRA3AMP9 INH; +LACT10SO6 PO; +NA P133E41 RC; +NYST15PO2 TP; +NYST1POW16 MC; +SSREG SUBCUT; -WARF2TAB2 PO; -WARF3TAB PO; +ZINC56.7 TP
[2019-11-01 13:09] VITALS: BP_SYST 118
[2019-11-01] MEDS ORDERED: NACL 0.9% 1,000 ML IV ONE (13:15)
[2019-11-01 13:40] LABS: BASOPHILS # (AUTO) 0.1 K/uL (0.0-0.2); BASOPHILS % (AUTO) 0.4 % (0.0-2.0); HEMATOCRIT 37.2 % (36-48); LYMPHOCYTES # (AUTO) 0.5 K/uL (1.0-5.5); LYMPHOCYTES % (AUTO) 3.7 % (20.5-51.5); MEAN CORPUSCULAR HEMOGLOBIN 28 pg (27-31); MEAN CORPUSCULAR HGB CONC 32 % (32-36); MEAN CORPUSCULAR VOLUME 87 fL (79.0-98.0); MONOCYTES # (AUTO) 0.5 K/uL (0.0-1.0); MONOCYTES % (AUTO) 3.5 % (1.7-9.3); NEUTROPHILS # (AUTO) 13.7 K/uL (1.8-7.7); NEUTROPHILS % (AUTO) 92.4 % (40.0-70.0); PLATELET COUNT (AUTO) 151 K/uL (130-430); RED BLOOD CELL COUNT(AUTO) 4.28 MIL/uL (4.2-6.2); RED CELL DISTRIBUTION WIDTH 18.4 % (9.0-15.0); WHITE BLOOD COUNT (AUTO) 14.8 K/uL (4.8-10.8)
[2019-11-01 13:51] LABS: ANION GAP 10 (5-15); CALCIUM 8.7 mg/dL (8.4-11.0); CHLORIDE 100 mmol/L (98-107); CREATININE 2.25 mg/dL (0.55-1.30); GLUCOSE 282 mg/dL (70-99); SODIUM SERUM 137 mmol/L (136-145)
[2019-11-01 13:56] LABS: INR 2.2 (0.8-1.2); PROTHROMBIN TIME 21.8 SECS (9.5-12.5)
[2019-11-01 14:01] LABS: UREA NITROGEN, BLOOD 117 mg/dL (8-21)
[2019-11-01 14:08] LABS: ASPARTATE AMINOTRANSFERASE 560 U/L (10-37); TOTAL BILIRUBIN 2.1 mg/dL (0.0-1.0)
[2019-11-01 14:09] LABS: ACETAMINOPHEN 12 ug/mL (1-30); ALANINE AMINOTRANSFERASE 614 U/L (12-78); AMYLASE 41 U/L (0-100); LIPASE 186 U/L (73-393)
[2019-11-01 14:10] LABS: ALCOHOL, BLOOD < 3 mg/dL (<10)
[2019-11-01] MEDS ORDERED: CLOPIDOGREL BISULFATE 75 MG TABLET PO ONE (15:00)
[2019-11-01] MEDS ORDERED: DILTIAZEM HCL 25 MG/5 ML VIAL IVP ONE (15:00)
[2019-11-01 15:10] LABS: BARBITURATE, URINE NEGATIVE (NEG <=200); BENZODIAZEPINE, URINE POSITIVE (NEG <=150); CANNABINOID, URINE NEGATIVE (NEG <=50); COCAINE, URINE NEGATIVE (NEG <=150); METHAMPHETAMINES SCREEN,URINE NEGATIVE (NEG <=500); OPIATE, URINE NEGATIVE (NEG <=100); PHENCYCLIDINE SCREEN,URINE NEGATIVE (NEG <=25); UR TRICYCLIC ANTIDEPRESSANTS NEGATIVE (NEG <=300); URINE AMPHETAMINE NEGATIVE (NEG <=500); URINE METHADONE NEGATIVE (NEG <=200); URINE OXYCODONE SCREEN NEGATIVE (NEG <=100); URINE PROPOXYPHENE SCREEN NEGATIVE (NEG <=300)
[2019-11-01] MEDS ORDERED: NACL 0.9% 1,000 ML IV SCH (17:15)
[2019-11-01 18:17] VITALS: BP_SYST 133
[2019-11-01] MEDS ORDERED: ALBUTEROL MDI INHALATION 8 GM INH INH PRN (19:15)
[2019-11-01] MEDS ORDERED: ALBUTEROL MDI INHALATION 8 GM INH INH SCH (19:15)
[2019-11-01] MEDS ORDERED: MEROPENEM 500 MG in NS 50 ML IV SCH (19:15)
[2019-11-01] MEDS ORDERED: ACETAMINOPHEN 325 MG TABLET PO PRN (19:30)
[2019-11-01] MEDS ORDERED: BISACODYL 10 MG/SUPPOSITORY RC PRN (19:30)
[2019-11-01] MEDS ORDERED: MILK OF MAGNESIA 30 ML UDC PO PRN (19:30)
[2019-11-01] MEDS ORDERED: INSULIN REGULAR, HUMAN 100 UNITS/ML, 10 ML VIAL (humuLIN R) SUBCUT PRN (19:30)
[2019-11-01] MEDS ORDERED: INVANZ 1 GM IV SCH (19:30)
[2019-11-01] MEDS ORDERED: IPRATROPIUM/ALBUTEROL SULFATE 3 ML AMPUL.NEB (DUONEB) INH PRN (19:30)
[2019-11-01] MEDS ORDERED: SODIUM PHOSPHATE,MONO-DIBASIC 133 ML ENEMA RC PRN (19:30)
[2019-11-01 19:40] LABS: BILIRUBIN,URINE NEGATIVE (NEGATIVE); BLOOD, URINE NEGATIVE (NEGATIVE); CLARITY/URINE CLOUDY (CLEAR); COLOR,URINE YELLOW (YELLOW); GLUCOSE,URINE NEGATIVE (NEGATIVE); KETONES,URINE NEGATIVE (NEGATIVE); LEUKOCYTE ESTERASE ,URINE TRACE (NEGATIVE); NITRITE, URINE NEGATIVE (NEGATIVE); PROTEIN URINE NEGATIVE (NEGATIVE)
[2019-11-01] MEDS ORDERED: DEXTROSE 50% JECT 50 ML DISP.SYRIN IVP PRN (19:45)
[2019-11-01 20:00] VITALS: BP_SYST 146
[2019-11-01 20:05] LABS: BACTERIA,URINE MANY /HPF (None Seen); RBC,URINE 0-3 /HPF (0-3)
[2019-11-01 20:06] LABS: MUCUS,URINE None Seen /LPF (None Seen); YEAST,URINE Many /HPF (None Seen)
[2019-11-01] MEDS ORDERED: MEROPENEM 500 MG VIAL IV ONE (20:34)
[2019-11-01] MEDS: NYSTATIN 15 GM TOPICAL POWDER TP SCH (21:00)
[2019-11-01] MEDS: ATORVASTATIN 20 MG TABLET PO SCH (22:27)
[2019-11-01] MEDS: METOPROLOL TARTRATE 50 MG TABLET PO SCH (22:29)
[2019-11-01] MEDS: MEROPENEM 500 MG in NS 50 ML IV SCH (22:29)
[2019-11-01] MEDS: INSULIN REGULAR, HUMAN 100 UNITS/ML, 10 ML VIAL (humuLIN R) SUBCUT PRN (22:31)
[2019-11-02] VITALS (7 sets, daily range): BP systolic 118–143
[2019-11-02] MEDS: DILTIAZEM HCL 60 MG TABLET PO SCH ×4 (00:48→18:06)
[2019-11-02] MEDS ORDERED: ALBUTEROL SULFATE 0.083% 2.5 MG/3 ML VIAL.NEB INH PRN (02:15)
[2019-11-02] MEDS: INSULIN REGULAR, HUMAN 100 UNITS/ML, 10 ML VIAL (humuLIN R) SUBCUT PRN ×3 (06:45→21:34)
[2019-11-02 06:58] LABS: BASOPHILS % (AUTO) 0.3 % (0.0-2.0); HEMATOCRIT 35.5 % (36-48); HEMOGLOBIN 11.5 g/dL (12.0-16.0); LYMPHOCYTES # (AUTO) 0.3 K/uL (1.0-5.5); MEAN CORPUSCULAR HEMOGLOBIN 28 pg (27-31); MEAN CORPUSCULAR HGB CONC 32 % (32-36); MEAN CORPUSCULAR VOLUME 87 fL (79.0-98.0); MONOCYTES # (AUTO) 0.4 K/uL (0.0-1.0); MONOCYTES % (AUTO) 3.3 % (1.7-9.3); NEUTROPHILS # (AUTO) 11.7 K/uL (1.8-7.7); NEUTROPHILS % (AUTO) 94.4 % (40.0-70.0); PLATELET COUNT (AUTO) 109 K/uL (130-430); RED CELL DISTRIBUTION WIDTH 18.5 % (9.0-15.0); WHITE BLOOD COUNT (AUTO) 12.4 K/uL (4.8-10.8)
[2019-11-02 07:11] LABS: INR 2.3 (0.8-1.2); PROTHROMBIN TIME 23.2 SECS (9.5-12.5)
[2019-11-02 07:44] LABS: ALBUMIN 2.8 g/dL (3.4-4.8); FREE T4 (FREE THYROXINE) 0.9 ng/dL (0.6-1.6); LDL CHOLESTEROL 96 mg/dL (<100)
[2019-11-02 08:10] LABS: ALANINE AMINOTRANSFERASE 851 U/L (12-78); ANION GAP 14 (5-15); ASPARTATE AMINOTRANSFERASE 731 U/L (10-37); CALCIUM 8.5 mg/dL (8.4-11.0); CHLORIDE 102 mmol/L (98-107); CHOLESTEROL 184 mg/dL (<200); CREATININE 2.23 mg/dL (0.55-1.30); GLUCOSE 269 mg/dL (70-99); HDL CHOLESTEROL 35 mg/dL (>55); LIPASE 222 U/L (73-393); POTASSIUM 4.6 mmol/L (3.5-5.1); SODIUM SERUM 138 mmol/L (136-145); TRIGLYCERIDES 133 mg/dL (30-150)
[2019-11-02 08:19] LABS: UREA NITROGEN, BLOOD 117 mg/dL (8-21)
[2019-11-02] MEDS: MEROPENEM 500 MG in NS 50 ML IV SCH ×2 (08:36→20:55)
[2019-11-02] MEDS: FUROSEMIDE 40 MG TABLET PO SCH ×2 (08:39→09:00)
[2019-11-02] MEDS: METOPROLOL TARTRATE 50 MG TABLET PO SCH ×2 (08:40→20:55)
[2019-11-02] MEDS: MULTIVITAMINS TAB 1 TABLET PO SCH (08:40)
[2019-11-02] MEDS: ASCORBIC ACID 500 MG TABLET PO SCH (08:40)
[2019-11-02] MEDS ORDERED: 0.45% NACL 1,000 ML IV SCH (09:00)
[2019-11-02] MEDS: NYSTATIN 15 GM TOPICAL POWDER TP SCH ×2 (09:00→20:55)
[2019-11-02] MEDS: NACL 0.9% 1,000 ML IV SCH ×2 (11:13→20:55)
[2019-11-02] MEDS ORDERED: ONDANSETRON HCL 4 MG/2 ML VIAL IVP PRN (12:45)
[2019-11-02] MEDS: WARFARIN SODIUM 1 MG TABLET PO SCH (18:06)
[2019-11-02] MEDS: ATORVASTATIN 20 MG TABLET PO SCH (20:55)
[2019-11-03 00:45] VITALS: BP_SYST 120
[2019-11-03] MEDS: DILTIAZEM HCL 60 MG TABLET PO SCH ×4 (00:45→17:31)
[2019-11-03] MEDS: NACL 0.9% 1,000 ML IV SCH ×2 (06:30→16:30)
[2019-11-03 07:17] LABS: BASOPHILS # (AUTO) 0.1 K/uL (0.0-0.2); BASOPHILS % (AUTO) 0.4 % (0.0-2.0); EOSINOPHILS % (AUTO) 0.1 % (0.0-4.0); HEMATOCRIT 34.9 % (36-48); HEMOGLOBIN 11.2 g/dL (12.0-16.0); LYMPHOCYTES # (AUTO) 0.7 K/uL (1.0-5.5); LYMPHOCYTES % (AUTO) 4.8 % (20.5-51.5); MEAN CORPUSCULAR HEMOGLOBIN 28 pg (27-31); MEAN CORPUSCULAR HGB CONC 32 % (32-36); MEAN CORPUSCULAR VOLUME 87 fL (79.0-98.0); MONOCYTES # (AUTO) 0.5 K/uL (0.0-1.0); MONOCYTES % (AUTO) 3.9 % (1.7-9.3); NEUTROPHILS # (AUTO) 12.4 K/uL (1.8-7.7); NEUTROPHILS % (AUTO) 90.8 % (40.0-70.0); PLATELET COUNT (AUTO) 98 K/uL (130-430); RED BLOOD CELL COUNT(AUTO) 4.04 MIL/uL (4.2-6.2); RED CELL DISTRIBUTION WIDTH 18.7 % (9.0-15.0); WHITE BLOOD COUNT (AUTO) 13.7 K/uL (4.8-10.8)
[2019-11-03 07:49] LABS: ALANINE AMINOTRANSFERASE 763 U/L (12-78); ALBUMIN 2.8 g/dL (3.4-4.8); ANION GAP 10 (5-15); ASPARTATE AMINOTRANSFERASE 482 U/L (10-37); CALCIUM 8.3 mg/dL (8.4-11.0); CHLORIDE 102 mmol/L (98-107); CREATININE 2.28 mg/dL (0.55-1.30); GLUCOSE 228 mg/dL (70-99); POTASSIUM 4.8 mmol/L (3.5-5.1); SODIUM SERUM 137 mmol/L (136-145); TOTAL BILIRUBIN 4.3 mg/dL (0.0-1.0)
[2019-11-03 08:06] LABS: UREA NITROGEN, BLOOD 103 mg/dL (8-21)
[2019-11-03 08:22] VITALS: BP_SYST 137
[2019-11-03] MEDS: MULTIVITAMINS TAB 1 TABLET PO SCH (08:23)
[2019-11-03] MEDS: METOPROLOL TARTRATE 50 MG TABLET PO SCH ×2 (08:23→21:35)
[2019-11-03] MEDS: FUROSEMIDE 40 MG TABLET PO SCH (08:23)
[2019-11-03] MEDS: ASCORBIC ACID 500 MG TABLET PO SCH (08:23)
[2019-11-03] MEDS: NYSTATIN 15 GM TOPICAL POWDER TP SCH ×2 (08:23→21:00)
[2019-11-03] MEDS: MEROPENEM 500 MG in NS 50 ML IV SCH ×2 (09:00→21:44)
[2019-11-03] MEDS: INSULIN REGULAR, HUMAN 100 UNITS/ML, 10 ML VIAL (humuLIN R) SUBCUT PRN ×3 (13:01→21:57)
[2019-11-03 16:00] VITALS: BP_SYST 120
[2019-11-03] MEDS: WARFARIN SODIUM 1 MG TABLET PO SCH (17:33)
[2019-11-03 21:31] VITALS: BP_SYST 135
[2019-11-03] MEDS: ATORVASTATIN 20 MG TABLET PO SCH (21:34)
[2019-11-04] MEDS: DILTIAZEM HCL 60 MG TABLET PO SCH ×2 (00:46→05:39)
[2019-11-04 01:36] VITALS: BP_SYST 133
[2019-11-04] MEDS: NACL 0.9% 1,000 ML IV SCH (04:08)
[2019-11-04] MEDS: INSULIN REGULAR, HUMAN 100 UNITS/ML, 10 ML VIAL (humuLIN R) SUBCUT PRN (05:50)
[2019-11-04 07:07] LABS: BASOPHILS % (AUTO) 0.1 % (0.0-2.0); EOSINOPHILS % (AUTO) 0.1 % (0.0-4.0); HEMATOCRIT 33.7 % (36-48); HEMOGLOBIN 10.9 g/dL (12.0-16.0); LYMPHOCYTES # (AUTO) 0.2 K/uL (1.0-5.5); MEAN CORPUSCULAR HEMOGLOBIN 28 pg (27-31); MEAN CORPUSCULAR HGB CONC 32 % (32-36); MEAN CORPUSCULAR VOLUME 87 fL (79.0-98.0); MONOCYTES # (AUTO) 0.3 K/uL (0.0-1.0); MONOCYTES % (AUTO) 2.5 % (1.7-9.3); NEUTROPHILS # (AUTO) 10.7 K/uL (1.8-7.7); NEUTROPHILS % (AUTO) 95.3 % (40.0-70.0); RED BLOOD CELL COUNT(AUTO) 3.89 MIL/uL (4.2-6.2); RED CELL DISTRIBUTION WIDTH 19.6 % (9.0-15.0); WHITE BLOOD COUNT (AUTO) 11.2 K/uL (4.8-10.8)
[2019-11-04 07:19] LABS: INR 2.3 (0.8-1.2); PROTHROMBIN TIME 22.9 SECS (9.5-12.5)
[2019-11-04 07:27] LABS: ALANINE AMINOTRANSFERASE 720 U/L (12-78); ALBUMIN 2.7 g/dL (3.4-4.8); ANION GAP 12 (5-15); ASPARTATE AMINOTRANSFERASE 393 U/L (10-37); CALCIUM 7.9 mg/dL (8.4-11.0); CHLORIDE 98 mmol/L (98-107); CREATININE 2.45 mg/dL (0.55-1.30); GLUCOSE 260 mg/dL (70-99); POTASSIUM 4.8 mmol/L (3.5-5.1); SODIUM SERUM 131 mmol/L (136-145); TOTAL BILIRUBIN 4.2 mg/dL (0.0-1.0)
[2019-11-04 07:40] LABS: UREA NITROGEN, BLOOD 110 mg/dL (8-21)
[2019-11-04 08:00] VITALS: BP_SYST 133
[2019-11-04] MEDS: ASCORBIC ACID 500 MG TABLET PO SCH (10:01)
[2019-11-04] MEDS: MEROPENEM 500 MG in NS 50 ML IV SCH (10:01)
[2019-11-04] MEDS: MULTIVITAMINS TAB 1 TABLET PO SCH (10:02)
[2019-11-04] MEDS: FUROSEMIDE 40 MG TABLET PO SCH (10:02)
[2019-11-04] MEDS: METOPROLOL TARTRATE 50 MG TABLET PO SCH (10:02)
[2019-11-04 10:17] LABS: PLATELET COUNT (AUTO) 75 K/uL (130-430)
[2019-11-04] MEDS ORDERED: ALBUTEROL SULFATE 0.083% 2.5 MG/3 ML VIAL.NEB INH SCH (11:00)
[2019-11-04] MEDS ORDERED: EPINEPHrine JECT 2 MG in NS 230 ML IV PRN (11:15)
[2019-11-04] MEDS ORDERED: EPINEPHrine JECT 2 MG in NS 230 ML IV ONE (11:15)
== END 2019-11-04 11:32 | disposition expired | DRG 871 ==
LOC: SED 13:04 → STU 17:06 → EEVIPCON 17:06 → STU 17:28
PROVIDERS: ADMIT Internal Medicine Hospice and Palliative Medicine; ATTEND Internal Medicine Hospice and Palliative Medicine
PROC: 05HY33Z Insertion of Infusion Device into Upper Vein, Percutaneous Approach (ICD-10-PCS; 2019-11-03)
PROC: B54MZZA Ultrasonography of Right Upper Extremity Veins, Guidance (ICD-10-PCS; 2019-11-03)
PROC: 0BH17EZ Insertion of Endotracheal Airway into Trachea, Via Natural or Artificial Opening (ICD-10-PCS; principal; 2019-11-04)
DX: A41.9 Sepsis, unspecified organism (principal); J96.01 Acute respiratory failure with hypoxia; J18.9 Pneumonia, unspecified organism; I50.33 Acute on chronic diastolic (congestive) heart failure; N17.0 Acute kidney failure with tubular necrosis; E43 Unspecified severe protein-calorie malnutrition; I13.0 Hypertensive heart and chronic kidney disease with heart failure and stage 1 through stage 4 chronic kidney disease, or unspecified chronic kidney disease; N39.0 Urinary tract infection, site not specified; I48.20 Chronic atrial fibrillation, unspecified; I24.9 Acute ischemic heart disease, unspecified; J91.8 Pleural effusion in other conditions classified elsewhere; N18.9 Chronic kidney disease, unspecified; E11.22 Type 2 diabetes mellitus with diabetic chronic kidney disease; E11.42 Type 2 diabetes mellitus with diabetic polyneuropathy; F03.90 Unspecified dementia, unspecified severity, without behavioral disturbance, psychotic disturbance, mood disturbance, and anxiety; M19.90 Unspecified osteoarthritis, unspecified site; I48.0 Paroxysmal atrial fibrillation; E86.0 Dehydration; E11.21 Type 2 diabetes mellitus with diabetic nephropathy; B96.20 Unspecified Escherichia coli [E. coli] as the cause of diseases classified elsewhere; D69.6 Thrombocytopenia, unspecified; R74.0 Nonspecific elevation of levels of transaminase and lactic acid dehydrogenase [LDH]; I46.9 Cardiac arrest, cause unspecified; Z20.828 Contact with and (suspected) exposure to other viral communicable diseases; Z79.01 Long term (current) use of anticoagulants; Z79.4 Long term (current) use of insulin; Z85.038 Personal history of other malignant neoplasm of large intestine; Z87.440 Personal history of urinary (tract) infections; Z87.891 Personal history of nicotine dependence; Z90.49 Acquired absence of other specified parts of digestive tract; Z79.899 Other long term (current) drug therapy; Z88.0 Allergy status to penicillin; Z74.01 Bed confinement status; Z88.8 Allergy status to other drugs, medicaments and biological substances
CPT/HCPCS: 36415; 70450-TC; 71045; 76604; 80053; 80061; 80307; 81000-TC; 82140-TC; 82150-TC; 82550-TC; 82962; 83605; 83690-TC; 83735-TC; 83880; 84439; 84484; 85025; 85610-TC; 85730-TC; 87040-TC; 87081; 87086; 93005; 96361; 96365; 96375; 97110-GP; 97530-GP; 99285; C1751; G0378; G0480; G0481; G0482; J0171; J1815; J1956; J2185; J2405; J3490; J7030; J7050; J7060; J7613; U0002